=== PATIENT | female | born 1970 | race Caucasian/White ===

== ENCOUNTER 2017-04-25 14:31 | Emergency (ER) | payer BC ==
[~2017-04-25] VITALS: Ht 157.5 cm; Wt 95.5 kg
[2017-04-25 14:32] VITALS: TEMP 36.4; Ht 157.5 cm; Wt 95.5 kg
[2017-04-25] MEDS ORDERED: ONDANSETRON INJ 2 MG/ML 2 ML VIAL IV STA (14:39)
[2017-04-25] MEDS ORDERED: SODIUM CHLORIDE 0.9% 1000ML 1,000 ML IV STA (14:39)
[2017-04-25] MEDS ORDERED: MoRPHine SULFATE 4 MG/ML 1 ML CARP\\VIAL IV PRN (14:45)
--- NOTE | 2017-04-25 14:45 | EMERGENCY ROOM VISIT NOTE ---
History Report prepared by Dwaine: Scott Montanez Under the Supervision of: Dr. Shady Raya D.O. First contact with patient: 14:35 Chief Complaint: FLANK PAIN Stated Complaint: PAIN IN RIGHT SIDE History of Present Illness The patient is a 46 year old female who presents to the Emergency Room with complaints of constant right sided flank pain that began yesterday 1 day prior to arrival. The patient states that her flank pain is intermittently radiating into her right lower abdominal quadrant as well. She is becoming nauseous secondary to her pain. She denies any urinary irregularities/blood in the urine. The patient has had a hysterectomy in the past due to endometriosis. Source of History: patient Onset: 1 day [employer] Position: back (Right Flank) Timing: constant Associated Symptoms: + abdominal pain, + nausea Review of Systems See HPI for pertinent positives & negatives. A total of 10 systems reviewed and were otherwise negative. Past Medical & Surgical Medical Problems: (1) Endometriosis Surgical Problems: (1) H/O: hysterectomy Family History Kidney disease Kidney stones Social History Smoking Status: Current Every Day Smoker Drug Use: none Marital Status: Housing Status: lives with significant other Occupation Status: employed Current/Historical Medications Scheduled PRN Hydrocodone/Acetaminophen 5MG/325MG ([place] 5MG/325MG), 1 TABLET PO Q4 PRN for Pain Physical Exam Vital Signs Date Time Temp Pulse Resp B/P Pulse Ox O2 Delivery O2 Flow Rate FiO2 04/25/17 16:32 78 18 123/77 98 04/25/17 15:41 70 18 105/68 96 Room Air 04/25/17 14:48 81 04/25/17 14:32 36.4 82 20 154/103 96 Room Air Physical Exam GENERAL: Patient is awake, alert, and in no acute distress. Patient is resting comfortably and showing no signs of anxiety EYES: The conjunctivae are clear. The pupils are round and reactive. EARS, NOSE, MOUTH AND THROAT: The nose is without any evidence of any deformity. Mucous membranes are moist tongue is midline NECK: The neck is nontender and supple. RESPIRATORY: Normal respiratory effort is noted there is no evidence of wheezing rhonchi or rales CARDIOVASCULAR: Regular rate and rhythm noted there no murmurs rubs or gallops normal S1 normal S2 GASTROINTESTINAL: The abdomen mildly distended but is soft. Bowel sounds are present in all quadrants. There is tenderness to palpation in the RUQ. no guarding or rigidity. PELVIS: The Pelvis is stable. No tenderness to palpation is noted. BACK: No midline tenderness or or step-off noted range of motion in flexion extension as well as rotation no signs of muscle spasm noted. There is mild right CVA tenderness to percussion. No midline tenderness noted. ROM intact. MUSCULOSKELETAL/EXTREMITIES: There is no evidence of gross deformity full range of motion is noted in the hips and shoulders SKIN: There is no obvious evidence of any rash. There are no petechiae, pallor or cyanosis noted. NEUROLOGIC: Patient is awake alert and oriented x3 strength is symmetric patellar reflexes are 2+ bilaterally Medical Decision & Procedures ER Provider Diagnostic Interpretation: Radiology results as stated below per my review and radiologist interpretation: CHEST ONE VIEW PORTABLE CLINICAL HISTORY: Abdominal pain. COMPARISON STUDY: No previous studies for comparison. FINDINGS: Lung volumes are normal. There is no consolidation. Pulmonary vascularity is normal. Cardiac size is normal. Mediastinal contours are normal. There is no evidence of pulmonary edema. IMPRESSION: No acute cardiopulmonary findings. Electronically signed by: Evelio Moore M.D. 04/25/2017 2:54 PM Dictated Date/Time: 04/25/2017 2:53 PM ABDOMEN AND PELVIS CT WITHOUT CONTRAST CT DOSE: 961.07 mGy.cm HISTORY: right flank pain TECHNIQUE: Multiaxial CT images of the abdomen and pelvis were performed without contrast. COMPARISON STUDY: None. FINDINGS: The lung bases are clear. Hepatic steatosis. The unenhanced spleen, adrenal glands, pancreas, and gallbladder are unremarkable. No renal or ureteral stones. No hydronephrosis. No retroperitoneal lymphadenopathy. The bladder is not well-distended but appears unremarkable. Hysterectomy. Suboptimal evaluation for bowel pathology due to the lack of intravenous and oral contrast. However, there is no definite bowel wall thickening or obstruction. The appendix is not identified and may be surgically absent. IMPRESSION: 1. No renal stones or hydronephrosis. 2. No definite bowel wall thickening or obstruction. 3. Hysterectomy. 4. Hepatic steatosis. Electronically signed by: Urbano England M.D. 04/25/2017 3:29 PM Dictated Date/Time: 04/25/2017 3:23 PM Laboratory Results 04/25/17 15:05 Red Blood Count 5.21, Mean Corpuscular Volume 90.0, Mean Corpuscular Hemoglobin 31.3, Mean Corpuscular Hemoglobin Concent 34.8, Mean Platelet Volume 12.4, Neutrophils (%) (Auto) 66.5, Lymphocytes (%) (Auto) 21.8, Monocytes (%) (Auto) 7.5, Eosinophils (%) (Auto) 3.0, Basophils (%) (Auto) 0.6, Neutrophils # (Auto) 6.88, Lymphocytes # (Auto) 2.25, Monocytes # (Auto) 0.77, Eosinophils # (Auto) 0.31, Basophils # (Auto) 0.06 04/25/17 15:05 Test 04/25/17 15:05 White Blood Count 10.33 K/uL (4.8-10.8) Red Blood Count 5.21 M/uL (4.2-5.4) Hemoglobin 16.3 g/dL (12.0-16.0) Hematocrit 46.9 % (37-47) Mean Corpuscular Volume 90.0 fL (80-100) Mean Corpuscular Hemoglobin 31.3 pg (25-34) Mean Corpuscular Hemoglobin Concent 34.8 g/dl (32-36) Platelet Count 225 K/uL (130-400) Mean Platelet Volume 12.4 fL (7.4-10.4) Neutrophils (%) (Auto) 66.5 % Lymphocytes (%) (Auto) 21.8 % Monocytes (%) (Auto) 7.5 % Eosinophils (%) (Auto) 3.0 % Basophils (%) (Auto) 0.6 % Neutrophils # (Auto) 6.88 K/uL (1.4-6.5) Lymphocytes # (Auto) 2.25 K/uL (1.2-3.4) Monocytes # (Auto) 0.77 K/uL (0.11-0.59) Eosinophils # (Auto) 0.31 K/uL (0-0.5) Basophils # (Auto) 0.06 K/uL (0-0.2) RDW Standard Deviation 43.5 fL (36.4-46.3) RDW Coefficient of Variation 13.3 % (11.5-14.5) Immature Granulocyte % (Auto) 0.6 % Immature Granulocyte # (Auto) 0.06 K/uL (0.00-0.02) Urine Color YELLOW Urine Appearance CLEAR (CLEAR) Urine pH 6.0 (4.5-7.5) Urine Specific [place] 1.016 (1.000-1.030) Urine Protein NEG (NEG) Urine Glucose (UA) NEG (NEG) Urine Ketones NEG (NEG) Urine Occult Blood NEG (NEG) Urine Nitrite NEG (NEG) Urine Bilirubin NEG (NEG) Urine Urobilinogen NEG (NEG) Urine Leukocyte Esterase NEG (NEG) Anion Gap 7.0 mmol/L (3-11) Est Creatinine Clear Calc Drug Dose 104.1 ml/min Estimated GFR () 115.6 Estimated GFR (Non- 99.7 BUN/Creatinine Ratio 19.3 (10-20) Calcium Level 8.6 mg/dl (8.5-10.1) Total Bilirubin 0.5 mg/dl (0.2-1) Direct Bilirubin < 0.1 mg/dl (0-0.2) Aspartate Amino Transf (AST/SGOT) 15 U/L (15-37) Alanine Aminotransferase (ALT/SGPT) 37 U/L (12-78) Alkaline Phosphatase 93 U/L (45-117) Total Protein 7.1 gm/dl (6.4-8.2) Albumin 4.0 gm/dl (3.4-5.0) Lipase 164 U/L (73-393) Laboratory results per my review. Medications Administered Medications (Trade) Dose Ordered Sig/Feliciano Route Start Time Stop Time Status Last Admin Dose Admin Sodium Chloride (Nss 1000ml) 1,000 ml @ 999 mls/hr Q1H1M STAT IV 04/25/17 14:39 04/25/17 15:39 DC 04/25/17 14:59 999 MLS/HR Ondansetron HCl (Zofran Inj) 4 mg NOW STAT IV 04/25/17 14:39 04/25/17 14:41 DC 04/25/17 14:58 4 MG Morphine Sulfate (MoRPHine SULFATE INJ) 4 mg Q15M PRN IV 04/25/17 14:45 04/25/17 16:37 DC 04/25/17 14:59 4 MG ED Course 1438: The patient was evaluated in room A11B. A complete history and physical examination were performed. 1439: Ordered Zofran 4 mg IV, Sodium Chloride 1000 mL @ 999 mL/hr IV. 1445: Ordered Morphine Sulfate 4 mg IV. 1556: Upon reevaluation, the patient is resting in bed. I discussed the results and treatment plan with her. She verbalized agreement of the treatment plan. The patient was discharged home. Medical Decision Blood pressure screening: Patient was found to have normal blood pressure on screening and does not require follow-up. Differential diagnosis: Etiologies such as renal colic, appendicitis, diverticulitis, mesenteric ischemia, aortic pathology, infections, inflammatory bowel disease, PUD, biliary pathology, UTI, as well as others were entertained. The patient is a 46-year-old female who presented to the emergency department for an evaluation of right flank pain. The patient appeared to have significant right flank pain but no midline tenderness was noted. The patient had some right upper quadrant abdominal tenderness to palpation but no guarding or rigidity. The patient was treated with IV fluids IV pain medicine and IV antiemetics. On subsequent reevaluation she was feeling much better. I discussed the patient's laboratory and radiographic studies with her. On my initial evaluation I felt her condition could be consistent with renal colic or possibly a kidney stone. I also thought it could be secondary to gallbladder pathology. The patient's radial graphic studies did not show any abnormality with the right kidney or the gallbladder. The patient was feeling much better on subsequent reevaluation. I encouraged her to rest and avoid any strenuous activity. She was encouraged to continue all medications as prescribed. Impression Primary Impression: Low back pain Scribe Attestation The scribe's documentation has been prepared under my direction and personally reviewed by me in its entirety. I confirm that the note above accurately reflects all work, treatment, procedures, and medical decision making performed by me. Departure Information Dispostion Home / Self-Care Prescriptions Hydrocodone/Acetaminophen 5MG/325MG ([place] 5MG/325MG) Tab 1 TABLET PO Q4 Y for Pain, #25 TAB Prov: Shady Raya, 04/25/17 Referrals No Doctor, Assigned (PCP) Forms HOME CARE DOCUMENTATION FORM, IMPORTANT VISIT INFORMATION Patient Instructions My [facility] Additional Instructions Call your family to schedule a follow-up appointment. Rest and avoid any strenuous activity. Continue using Tylenol and Aleve for mild pain. Return to the emergency department if symptoms change worsen or the need arises. Problem Qualifiers Primary Impression: Low back pain Chronicity: acute Back pain laterality: right Sciatica presence: without sciatica Qualified Codes: M54.5 - Low back pain
--- NOTE | 2017-04-25 14:56 | DIAGNOSTIC IMAGING REPORT ---
CHEST ONE VIEW PORTABLE CLINICAL HISTORY: Abdominal pain. COMPARISON STUDY: No previous studies for comparison. FINDINGS: Lung volumes are normal. There is no consolidation. Pulmonary vascularity is normal. Cardiac size is normal. Mediastinal contours are normal. There is no evidence of pulmonary edema. IMPRESSION: No acute cardiopulmonary findings. Electronically signed by: Evelio Moore M.D. 04/25/2017 2:54 PM Dictated Date/Time: 04/25/2017 2:53 PM
[2017-04-25 15:10] LABS: URINE APPEARANCE CLEAR (CLEAR); URINE BILIRUBIN NEG (NEG); URINE COLOR YELLOW; URINE NITRITE NEG (NEG); URINE SPECIFIC GRAVITY 1.016 (1.000-1.030); UROBILINOGEN NEG (NEG)
[2017-04-25 15:11] LABS: BASO % 0.6 %; BASO ABS # 0.06 K/uL (0-0.2); COMPLETE YES; HEMATOCRIT 46.9 % (37-47); IG% 0.6 %; LYMPH % 21.8 %; LYMPH ABS # 2.25 K/uL (1.2-3.4); MEAN CORPUSCULAR HEMOGLOBIN 31.3 pg (25-34); MEAN CORPUSCULAR HGB CONC 34.8 g/dl (32-36); MEAN PLATELET VOLUME 12.4 fL (7.4-10.4); MONO % 7.5 %; NEUT % 66.5 %; PLATELET COUNT 225 K/uL (130-400); RED BLOOD COUNT 5.21 M/uL (4.2-5.4); WHITE BLOOD COUNT 10.33 K/uL (4.8-10.8)
[2017-04-25 15:24] LABS: MANUAL MICROSCOPIC REQUIRED? NO; REVIEW REQ? NO
[2017-04-25 15:28] LABS: ALT/SGPT 37 U/L (12-78); AST/SGOT 15 U/L (15-37); BLOOD UREA NITROGEN 14 mg/dl (7-18); BUN/CREATININE RATIO 19.3 (10-20); CALCIUM 8.6 mg/dl (8.5-10.1); CARBON DIOXIDE 26 mmol/L (21-32); CHLORIDE 110 mmol/L (98-107); CREATININE 0.72 mg/dl (0.60-1.20); GLUCOSE 84 mg/dl (70-99); POTASSIUM 4.1 mmol/L (3.5-5.1); SODIUM 143 mmol/L (136-145)
--- NOTE | 2017-04-25 15:30 | DIAGNOSTIC IMAGING REPORT ---
ABDOMEN AND PELVIS CT WITHOUT CONTRAST CT DOSE: 961.07 mGy.cm HISTORY: right flank pain TECHNIQUE: Multiaxial CT images of the abdomen and pelvis were performed without contrast. COMPARISON STUDY: None. FINDINGS: The lung bases are clear. Hepatic steatosis. The unenhanced spleen, adrenal glands, pancreas, and gallbladder are unremarkable. No renal or ureteral stones. No hydronephrosis. No retroperitoneal lymphadenopathy. The bladder is not well-distended but appears unremarkable. Hysterectomy. Suboptimal evaluation for bowel pathology due to the lack of intravenous and oral contrast. However, there is no definite bowel wall thickening or obstruction. The appendix is not identified and may be surgically absent. IMPRESSION: 1. No renal stones or hydronephrosis. 2. No definite bowel wall thickening or obstruction. 3. Hysterectomy. 4. Hepatic steatosis. Electronically signed by: Urbano England M.D. 04/25/2017 3:29 PM Dictated Date/Time: 04/25/2017 3:23 PM
[2017-04-25 15:31] LABS: ALKALINE PHOSPHATASE 93 U/L (45-117)
[2017-04-25] MEDS ORDERED: HYDR-5688 PO (16:01)
[2017-04-25 16:32] VITALS: BP 123/77; PULSE 78; O2SAT 98
== END 2017-04-25 16:33 | disposition home or self-care (01) ==
LOC: C.EDB 14:33 → C.EDA 16:33
DX: M54.5 Low back pain (principal); N80.9 Endometriosis, unspecified; Z84.1 Family history of disorders of kidney and ureter; F17.210 Nicotine dependence, cigarettes, uncomplicated

== ENCOUNTER 2017-04-27 18:12 | Emergency (ER) | payer BC ==
[~2017-04-27] VITALS: Ht 157.5 cm; Wt 93.3 kg
[~2017-04-27 18:12] MED LIST: HYDR-5688 PO
[2017-04-27 18:15] VITALS: Ht 157.5 cm; Wt 93.3 kg
[2017-04-27] MEDS ORDERED: SODIUM CHLORIDE 0.9% 1000ML 1,000 ML IV STA (18:35)
[2017-04-27] MEDS ORDERED: ONDANSETRON INJ 2 MG/ML 2 ML VIAL IV STA (18:35)
[2017-04-27] MEDS ORDERED: HYDROmorphone INJ 1 MG/ML SYR IV STA (18:36)
--- NOTE | 2017-04-27 18:49 | DIAGNOSTIC IMAGING REPORT ---
SINGLE VIEW CHEST CLINICAL HISTORY: Atypical chest pain. Right upper quadrant abdominal pain. FINDINGS: An AP, portable, upright chest radiograph is compared to study dated 04/25/2017. The examination is degraded by portable technique, large body habitus, and patient rotation. The cardiomediastinal silhouette is unremarkable. The lungs and pleural spaces are clear. No pneumothorax is seen. The bony thorax is grossly intact. IMPRESSION: No active disease in the chest and no significant change from 04/25/2017. Electronically signed by: Fabian Tran M.D. 04/27/2017 6:48 PM Dictated Date/Time: 04/27/2017 6:47 PM
--- NOTE | 2017-04-27 18:55 | EMERGENCY ROOM VISIT NOTE ---
History First contact with patient: 18:19 Chief Complaint: ABDOMINAL PAIN Stated Complaint: PAIN IN RIGHT SIDE AND BACK Nursing Triage Summary: Pt reports right sided abd pain that goes across abd and into back. associated n/v. reports was seen here the other day and told it was gallbladder History of Present Illness The patient is a 46 year old female who presents to the Emergency Room with complaints of right-sided abdominal/back pain. The patient states that she woke up a few days ago with right back pain radiating into the abdomen. She was seen here 2 days ago and told that her gallbladder was enlarged. She states that she has had persistent right-sided back pain which she rates a 10/ 10. She states the pain radiates across her upper abdomen and into the center of her chest. She reports associated nausea and one episode of vomiting. She states she has not had a bowel movement for 3 days, which is unusual for her. She denies any history of abdominal surgeries. She denies any cardiac history. She denies any shortness of breath, urinary symptoms or abnormal vaginal discharge. Review of Systems A complete 10 point review of systems was reviewed with the patient with pertinent positives and negatives as per history of present illness. All else were negative. Past Medical/Surgical History Medical Problems: (1) Endometriosis Surgical Problems: (1) H/O: hysterectomy Family History Kidney disease Kidney stones Social History Smoking Status: Current Every Day Smoker Drug Use: none Marital Status: Housing Status: lives with significant other Occupation Status: employed Current/Historical Medications Scheduled PRN Hydrocodone/Acetaminophen 5MG/325MG ([place] 5MG/325MG), 1 TABLET PO Q4 PRN for Pain Hydrocodone/Acetaminophen 5MG/325MG ([place] 5MG/325MG), 1-2 TABLET PO Q4H PRN for Pain Allergies Coded Allergies: No Known Allergies (Unverified , 04/27/17) Physical Exam Vital Signs Date Time Temp Pulse Resp B/P Pulse Ox O2 Delivery O2 Flow Rate FiO2 04/27/17 21:42 36.8 65 18 135/87 96 04/27/17 20:52 65 18 135/87 96 Room Air 04/27/17 18:15 36.8 87 18 144/93 96 Room Air Physical Exam VITALS: Vitals are noted on the nurse's note and reviewed by myself. Vital signs stable. GENERAL: This is a 46-year-old female, in no acute distress, nondiaphoretic, well-developed well-nourished. SKIN: Capillary reflex less than 2 seconds. HEENT: Normocephalic. PERRLA. EOMI. Nares patent. Mucous membranes moist. Neck is supple without nuchal rigidity. HEART: Regular rate and rhythm without murmurs gallops or rubs. LUNGS: Clear to auscultation bilaterally without wheezes, rales or rhonchi. ABDOMEN: Positive bowel sounds x 4. Soft, moderate tenderness to palpation of the right upper quadrant. No guarding or rebound tenderness. No CVA tenderness. MUSCULOSKELETAL: No tenderness to palpation of the lumbar or thoracic spinous processes or paraspinous muscles. NEURO: Patient was alert and oriented to person place and time. Medical Decision & Procedures ER Provider Diagnostic Interpretation: SINGLE VIEW CHEST FINDINGS: An AP, portable, upright chest radiograph is compared to study dated 04/25/2017. The examination is degraded by portable technique, large body habitus, and patient rotation. The cardiomediastinal silhouette is unremarkable. The lungs and pleural spaces are clear. No pneumothorax is seen. The bony thorax is grossly intact. IMPRESSION: No active disease in the chest and no significant change from 04/25/2017. ULTRASOUND RIGHT UPPER QUADRANT ABDOMEN FINDINGS: Liver: The liver is enlarged and demonstrates heterogeneously increased echotexture consistent with hepatic steatosis. Fatty sparing is noted adjacent to gallbladder fossa. There is no intrahepatic biliary ductal dilatation. The main portal vein is patent. Gallbladder: The gallbladder is normal in appearance. No gallstones are identified. There is no gallbladder wall thickening or pericholecystic fluid. A sonographic Swift's sign is reportedly absent. The common bile duct measures up to 0.5 cm in diameter. Pancreas: Visualized portions of the pancreatic head and body are normal in appearance. The splenic vein is patent. Right kidney: Survey images of the right kidney demonstrate normal size and echotexture. There is no hydronephrosis. Ascites: None. IMPRESSION: 1. No acute sonographic abnormality is identified in the right upper quadrant. No gallstones are seen. 2. Hepatomegaly and hepatic steatosis. Laboratory Results 04/27/17 18:35 Red Blood Count 5.21, Mean Corpuscular Volume 89.6, Mean Corpuscular Hemoglobin 29.6, Mean Corpuscular Hemoglobin Concent 33.0, Mean Platelet Volume 12.7, Neutrophils (%) (Auto) 65.5, Lymphocytes (%) (Auto) 25.1, Monocytes (%) (Auto) 6.1, Eosinophils (%) (Auto) 2.3, Basophils (%) (Auto) 0.6, Neutrophils # (Auto) 6.59, Lymphocytes # (Auto) 2.52, Monocytes # (Auto) 0.61, Eosinophils # (Auto) 0.23, Basophils # (Auto) 0.06 04/27/17 18:35 Test 04/27/17 18:35 04/27/17 18:50 White Blood Count 10.05 K/uL (4.8-10.8) Red Blood Count 5.21 M/uL (4.2-5.4) Hemoglobin 15.4 g/dL (12.0-16.0) Hematocrit 46.7 % (37-47) Mean Corpuscular Volume 89.6 fL (80-100) Mean Corpuscular Hemoglobin 29.6 pg (25-34) Mean Corpuscular Hemoglobin Concent 33.0 g/dl (32-36) Platelet Count 250 K/uL (130-400) Mean Platelet Volume 12.7 fL (7.4-10.4) Neutrophils (%) (Auto) 65.5 % Lymphocytes (%) (Auto) 25.1 % Monocytes (%) (Auto) 6.1 % Eosinophils (%) (Auto) 2.3 % Basophils (%) (Auto) 0.6 % Neutrophils # (Auto) 6.59 K/uL (1.4-6.5) Lymphocytes # (Auto) 2.52 K/uL (1.2-3.4) Monocytes # (Auto) 0.61 K/uL (0.11-0.59) Eosinophils # (Auto) 0.23 K/uL (0-0.5) Basophils # (Auto) 0.06 K/uL (0-0.2) RDW Standard Deviation 43.6 fL (36.4-46.3) RDW Coefficient of Variation 13.3 % (11.5-14.5) Immature Granulocyte % (Auto) 0.4 % Immature Granulocyte # (Auto) 0.04 K/uL (0.00-0.02) Anion Gap 7.0 mmol/L (3-11) Est Creatinine Clear Calc Drug Dose 90.2 ml/min Estimated GFR () 98.8 Estimated GFR (Non- 85.2 BUN/Creatinine Ratio 16.6 (10-20) Calcium Level 8.9 mg/dl (8.5-10.1) Total Bilirubin 0.5 mg/dl (0.2-1) Aspartate Amino Transf (AST/SGOT) 15 U/L (15-37) Alanine Aminotransferase (ALT/SGPT) 33 U/L (12-78) Alkaline Phosphatase 97 U/L (45-117) Troponin I < 0.015 ng/ml (0-0.045) Total Protein 7.6 gm/dl (6.4-8.2) Albumin 4.0 gm/dl (3.4-5.0) Globulin 3.6 gm/dl (2.5-4.0) Albumin/Globulin Ratio 1.1 (0.9-2) Lipase 135 U/L (73-393) Urine Color YELLOW Urine Appearance CLEAR (CLEAR) Urine pH 6.5 (4.5-7.5) Urine Specific [place] 1.008 (1.000-1.030) Urine Protein NEG (NEG) Urine Glucose (UA) NEG (NEG) Urine Ketones NEG (NEG) Urine Occult Blood NEG (NEG) Urine Nitrite NEG (NEG) Urine Bilirubin NEG (NEG) Urine Urobilinogen NEG (NEG) Urine Leukocyte Esterase NEG (NEG) Urine Test NEG (NEG) Medications Administered Medications (Trade) Dose Ordered Sig/Feliciano Route Start Time Stop Time Status Last Admin Dose Admin Sodium Chloride (Nss 1000ml) 1,000 ml @ 999 mls/hr Q1H1M STAT IV 04/27/17 18:35 04/27/17 19:35 DC 04/27/17 18:45 999 MLS/HR Ondansetron HCl (Zofran Inj) 4 mg NOW STAT IV 04/27/17 18:35 04/27/17 18:36 DC 04/27/17 18:44 4 MG Hydromorphone HCl (Dilaudid Inj) 1 mg NOW STAT IV 04/27/17 18:36 04/27/17 18:37 DC 04/27/17 18:44 1 MG Acetaminophen/ Hydrocodone Bitart ([place] 5/325mg Home Pack) 1 homepack UD ONCE PO 04/27/17 21:30 04/27/17 21:31 DC 04/27/17 21:41 1 HOMEPACK ECG Rate (beats per minute): 71 Rhythm: normal sinus Findings: no acute ischemic change, no ectopy ED Course The patient was evaluated as above. Labs were drawn and IV access was obtained. Patient was medicated with 1 mg Dilaudid IV and 4 mg Zofran IV. Ultrasound of the right upper quadrant was performed and read by radiology as above. Patient was reevaluated and findings were discussed. She will be discharged home to follow-up with her primary care provider. She was ordered a home pack of [place]. Discharge instructions were reviewed with the patient. The patient verbalized understanding of my assessment and treatment plan and was discharged home in good condition. Medical Decision Differential diagnosis includes biliary colic, renal colic, musculoskeletal pain , colitis, gastritis, among others. The patient is a 46-year-old female who presents today complaining of right upper quadrant pain and right-sided back pain. Labs revealed no leukocytosis, anemia or concerning electrolyte abnormalities. Kidney and liver functions are within normal limits. Urinalysis was not suggestive of infection. Urine was negative. EKG was interpreted by myself and shows a normal sinus rhythm with no evidence of ischemia troponin was not elevated. Previous records were reviewed. The patient was seen here 2 days ago and had a CT scan at that time which was unremarkable. A right upper quadrant ultrasound today showed no evidence of biliary disease. I am unsure of the cause of the patient' s pain, but suspect it is likely musculoskeletal. The patient will be given a short course of [place] and will follow-up with her primary care provider for further evaluation. The patient's case was reviewed with Dr. Fernando, ED attending physician, who agreed with my assessment and treatment plan. Based on the patient's presentation and work up, I feel the patient is stable for outpatient treatment. The patient was educated to return to the emergency department for any worsening of their current condition or new/concerning symptoms. She will follow up with her PCP or return here sooner for worsening symptoms. Impression Primary Impression: Right-sided back pain Departure Information Dispostion Home / Self-Care Condition GOOD Prescriptions Hydrocodone/Acetaminophen 5MG/325MG ([place] 5MG/325MG) Tab 1-2 TABLET PO Q4H Y for Pain, #15 TAB For Initial Treatment Prov: Adina Renteria PA-C 04/27/17 Referrals No Doctor, Assigned (PCP) Patient Instructions My [facility] Additional Instructions You have been treated in the Emergency Department your Abdominal Pain. Laboratory results and imaging studies have ruled out any emergent causes for your abdominal pain which would warrant admission or surgery. You have been prescribed [place] to be used for pain control. This is a narcotic medication. You cannot drive or consume alcohol while on this medicine. This medicine should only be used for pain that cannot be controlled with over-the- counter pain medicines. For pain control, you can use the following [id number]-yftqayr medicines (if >12 yo): - Regular strength (325mg/tab) Tylenol (acetaminophen) 2 tabs every 4-6 hours as needed. Do not exceed 12 tablets in a 24 hour period. Avoid taking more than 4 grams (4000 mg) of Tylenol per day. This includes any other sources of acetaminophen you may take on a regular basis. - Regular strength (200 mg/tab) Advil (ibuprofen) 1-2 tabs every 4-6 hours as needed. Do not exceed a dose of 3200 mg per day. Drink plenty of water and stay well hydrated. As with any trip to the Emergency Department, you should follow-up with your Primary Care Provider from today's visit. Return to the emergency department with any worsening symptoms or new/ concerning symptoms. Problem Qualifiers Primary Impression: Right-sided back pain
[2017-04-27 19:12] LABS: ALT/SGPT 33 U/L (12-78); AST/SGOT 15 U/L (15-37); BLOOD UREA NITROGEN 14 mg/dl (7-18); BUN/CREATININE RATIO 16.6 (10-20); CALCIUM 8.9 mg/dl (8.5-10.1); CARBON DIOXIDE 27 mmol/L (21-32); CHLORIDE 109 mmol/L (98-107); CREATININE 0.82 mg/dl (0.60-1.20); GLUCOSE 95 mg/dl (70-99); POTASSIUM 3.7 mmol/L (3.5-5.1); SODIUM 143 mmol/L (136-145)
[2017-04-27 19:17] LABS: ALB/GLOB RATIO 1.1 (0.9-2); ALKALINE PHOSPHATASE 97 U/L (45-117)
[2017-04-27 19:19] LABS: URINE APPEARANCE CLEAR (CLEAR); URINE BILIRUBIN NEG (NEG); URINE COLOR YELLOW; URINE NITRITE NEG (NEG); URINE PH 6.5 (4.5-7.5); URINE SPECIFIC GRAVITY 1.008 (1.000-1.030); UROBILINOGEN NEG (NEG); ZZUR CULT IF INDIC CLEAN CATCH NO
[2017-04-27 19:23] LABS: MANUAL MICROSCOPIC REQUIRED? NO; REVIEW REQ? NO
--- NOTE | 2017-04-27 19:55 | DIAGNOSTIC IMAGING REPORT ---
ULTRASOUND RIGHT UPPER QUADRANT ABDOMEN CLINICAL HISTORY: Vomiting. Right upper quadrant abdominal pain. COMPARISON STUDY: Abdominal CT dated 04/25/2017. TECHNIQUE: Real-time, grayscale, and color flow sonography of the right upper quadrant of the abdomen was performed. Images are reviewed in the transverse and longitudinal planes. FINDINGS: Liver: The liver is enlarged and demonstrates heterogeneously increased echotexture consistent with hepatic steatosis. Fatty sparing is noted adjacent to gallbladder fossa. There is no intrahepatic biliary ductal dilatation. The main portal vein is patent. Gallbladder: The gallbladder is normal in appearance. No gallstones are identified. There is no gallbladder wall thickening or pericholecystic fluid. A sonographic Swift's sign is reportedly absent. The common bile duct measures up to 0.5 cm in diameter. Pancreas: Visualized portions of the pancreatic head and body are normal in appearance. The splenic vein is patent. Right kidney: Survey images of the right kidney demonstrate normal size and echotexture. There is no hydronephrosis. Ascites: None. IMPRESSION: 1. No acute sonographic abnormality is identified in the right upper quadrant. No gallstones are seen. 2. Hepatomegaly and hepatic steatosis. Electronically signed by: Fabian Tran M.D. 04/27/2017 7:53 PM Dictated Date/Time: 04/27/2017 7:52 PM
[2017-04-27 20:30] LABS: BASO % 0.6 %; BASO ABS # 0.06 K/uL (0-0.2); COMPLETE YES; EOS % 2.3 %; HEMATOCRIT 46.7 % (37-47); IG% 0.4 %; LYMPH % 25.1 %; LYMPH ABS # 2.52 K/uL (1.2-3.4); MEAN CELL VOLUME 89.6 fL (80-100); MEAN CORPUSCULAR HEMOGLOBIN 29.6 pg (25-34); MEAN PLATELET VOLUME 12.7 fL (7.4-10.4); MONO % 6.1 %; NEUT % 65.5 %; PLATELET COUNT 250 K/uL (130-400); RED BLOOD COUNT 5.21 M/uL (4.2-5.4); WHITE BLOOD COUNT 10.05 K/uL (4.8-10.8)
[2017-04-27] MEDS ORDERED: HYDR-5688 PO (21:25)
[2017-04-27] MEDS ORDERED: NORCO 5/325MG HOME PACK PO ONE (21:30)
[2017-04-27 21:42] VITALS: BP 135/87; PULSE 65; TEMP 36.8; O2SAT 96
== END 2017-04-27 21:43 | disposition home or self-care (01) ==
LOC: C.EDB 18:13 → C.EDA 21:43
DX: M54.9 Dorsalgia, unspecified (principal); R10.11 Right upper quadrant pain; N80.9 Endometriosis, unspecified; Z84.1 Family history of disorders of kidney and ureter; F17.210 Nicotine dependence, cigarettes, uncomplicated

== ENCOUNTER 2022-11-01 21:38 | Inpatient (IN) ==
[2022-11-01 22:05] LABS: Basophils # (auto) 0.09 K/uL (0-0.2); Basophils % (auto) 0.6 %; Eosinophils # (auto) 0.13 K/uL (0-0.50); Eosinophils % (auto) 0.8 %; Hemoglobin 15.8 g/dl (12.0-16.0); Immature Granulocytes # (auto) 0.14 K/uL (0.00-0.02); Immature Granulocytes % (auto) 0.9 %; Lymphocytes # (auto) 3.92 K/uL (1.2-3.4); Lymphocytes % (auto) 24.6 %; Mean Corpuscular Hgb Conc 33.6 g/dL (32.0-36.0); Mean Corpuscular Volume 92.2 fL (80.0-100.0); Mean Platelet Volume 11.6 fL (9.4-12.3); Monocytes # (auto) 1.04 K/uL (0.24-0.82); Monocytes % (auto) 6.5 %; Neutrophils # (auto) 10.61 K/uL (1.4-6.5); Neutrophils % (auto) 66.6 %; Platelet Count 252 K/uL (130-400); RDW Coefficient of Variation 13.9 % (11.5-14.5); RDW Standard Deviation 46.9 fL (36.4-46.3); White Blood Count 15.93 K/ul (4.8-10.8)
[2022-11-01 22:28] LABS: Albumin Globulin Ratio 1.6 (0.9-2); Albumin Level 4.2 gm/dl (3.4-5.0); BUN Creatinine Ratio 12.6 (10-20); Bilirubin,Total 0.2 mg/dl (0.2-1.0); Calcium 8.8 mg/dl (8.5-10.1); Creatinine Clr Calc Pharmacy 60.9 ml/min; Est GFR (African American) 60.4 ml/min; Est GFR (Non-African American) 52.1 ml/min; Globulin 2.6 gm/dl (2.5-4.0); Total Protein 6.8 gm/dl (6.0-8.3)
[2022-11-01 22:33] LABS: INR 0.9 (0.9-1.1); Partial Thromboplastin Ratio 0.9; Partial Thromboplastin Time 24.5 Seconds (21.0-31.0)
[2022-11-01 22:39] LABS: Troponin I High Sensitivity 118.4 pg/ml (0-14)
[2022-11-02] MEDS ORDERED: SODIUM CHLORIDE 0.9% 1000ML 1,000 ML IV ONE ×2 (00:17→02:15)
[2022-11-02] MEDS ORDERED: ASPIRIN CHEW 324 MG PO STA (01:35)
[2022-11-02] MEDS ORDERED: Heparin IV Adult Wt-Based Standard *NO* Bolus Protocol IV SCH (02:13)
[2022-11-02] MEDS ORDERED: NITROGLYCERIN SL 0.4 MG/TAB TAB SL STA (02:13)
[2022-11-02] MEDS ORDERED: HEPARIN SODIUM/DEXTROSE 25,000 UNITS/500 ML BAG IV SCH (02:30)
--- NOTE | 2022-11-02 03:40 | History & Physical Report ---
Date of Service November 02, 2022 Assessment & Plan (1) NSTEMI (non-ST elevated myocardial infarction): Plan: hyperlipidemia, currently not on statin Rx GERD stable on regimen psoriatic arthritis ongoing steroid taper for knee pain ongoing tobacco abuse PCU Aspirin, beta-lionel, statin, IV heparin Nitro as needed Follow troponin Update lipid profile TTE, Cardiology consult Re: NSTEMI N.p.o. until patient seen by cardiology in anticipation of ischemic work-up Nicotine patch as needed DVT prophylaxis. IV heparin Full code Text document was generated using [employer] voice recognition software. It may contain grammatical or spelling errors. Kindly contact undersigned for clarification of any documentation item in question. History of Present Illness Chief Complaint: Chest pain Primary Care Provider: Dorene Viera MD History obtained from patient and records. Medical history significant for hyperlipidemia, GERD, psoriatic arthritis ongoing steroid taper for knee pain, ongoing tobacco abuse. 2 weeks ago, patient noted left-sided chest pain described as heaviness going to the left arm and jaw. Some shortness of breath. Intermittent symptoms. No unusual stress at home. Chest pain similar to episode in 2019 which prompted outpatient stress echo negative for inducible ischemia. More intense discomfort in the last 3 days. Patient took aspirin last night. Consulted ER for worsening symptoms. Chest pain improved with nitroglycerin administration at the ER. Medical History as above Surgical History : Current section, fourth toe surgery, rectal surgery, ROBBI/BSO Family History : DM, heart disease Personal/Social history : Half pack daily, no EtOH intake, factory work Allergies Allergy/AdvReac Type Severity Reaction Status Date / Time oxycodone AdvReac Intermediate Severe Unverified 11/02/22 03:02 nausea acetaminophen AdvReac Nausea Verified 11/02/22 03:03 [From Darvocet-N] propoxyphene AdvReac Nausea Verified 11/02/22 03:03 [From Darvocet-N] Home Medications Medication Instructions Recorded Confirmed Type acetaminophen 325 mg tablet 650 mg PO QID PRN Pain 11/02/22 11/02/22 History (Tylenol) betamethasone dipropionate 0.05 % 1 applic topical BID 11/02/22 11/02/22 History topical ointment folic acid 1 mg tablet 1 mg PO QAM 11/02/22 11/02/22 History hydrocortisone 2.5 % topical cream 1 applic HI BID PRN Hemorrhoids 11/02/22 11/02/22 History with perineal applicator (Proctozone-HC) methotrexate sodium 2.5 mg tablet 15 mg PO .QFRI 11/02/22 11/02/22 History montelukast 10 mg tablet 10 mg PO DAILY PRN Allergy Symptoms 11/02/22 11/02/22 History omeprazole 20 mg capsule,delayed 20 mg PO DAILY PRN Acid Reflux 11/02/22 11/02/22 History release prednisone 5 mg tablet 5 mg PO .TAPER UD 11/02/22 11/02/22 History sucralfate 1 gram tablet 1 g PO ACHS PRN Acid Reflux 11/02/22 11/02/22 History Past Med/Surg History Medical History Arthritis Current every day smoker GERD (gastroesophageal reflux disease) Family History Other No significant family history Social History Smoking Status: Current every day smoker Second Hand Exposure: No; Do You Dip or Chew Tobacco: No; Tobacco Cessation Education Requested by Patient: No Hx Alcohol Use: Yes Hx Substance Use: No Preferred Language: Azerbaijani Communication Ability: Effective 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 Beliefs That Will Affect Care: None Current Living Situation: Spouse Other Information That Helps Us Care for You: No Feels Safe at Home: Yes Safety Concerns: Feels Safe At This Time Assistive Devices: Glasses Review of Systems Review of Systems: As per HPI, all other systems reviewed and negative Physical Exam Physical Exam: GENERAL: Comfortable, pleasant, obese, no respiratory distress SKIN: Normal color, warm HEENT: Bespectacled, [place] palpebral conjunctivae, no ptosis, moist buccal mucosa NECK : Supple, short neck, mo tenderness CHEST : CTA, no tenderness HEART : RRR, no obvious murmurs ABDOMEN: Some distention, nontender EXTREMITIES : No LE swelling, minimal knee tenderness, no other conspicuous def ormities noted NEUROLOGIC : Coherent, no facial asymmetry, no other gross focality Results & Data Results & Data ([facility]) Vital Signs (Past 12 Hours) Vital Signs Temp Pulse Pulse Resp BP BP Pulse Ox 11/02/22 03:00 63 16 126/84 96 11/02/22 01:00 68 18 130/93 97 11/01/22 23:40 11/01/22 23:40 74 16 131/91 95 11/01/22 21:42 36.5 C 87 20 137/92 96 O2 Del Method 11/02/22 03:00 Room Air 11/02/22 01:00 Room Air 11/01/22 23:40 Room Air 11/01/22 23:40 Room Air 11/01/22 21:42 Room Air Laboratory Results Laboratory Results WBC 15.93 K/ul (4.8-10.8) H 11/01/22 21:51 RBC 5.10 M/uL (3.93-5.22) 11/01/22 21:51 Hgb 15.8 g/dl (12.0-16.0) 11/01/22 21:51 Hct 47.0 % (34.1-44.9) H 11/01/22 21:51 MCV 92.2 fL (80.0-100.0) 11/01/22 21:51 MCH 31.0 pg (25.0-34.0) 11/01/22 21:51 MCHC 33.6 g/dL (32.0-36.0) 11/01/22 21:51 RDW Std Deviation 46.9 fL (36.4-46.3) H 11/01/22 21:51 RDW Coeff of Aydin 13.9 % (11.5-14.5) 11/01/22 21:51 Plt Count 252 K/uL (130-400) 11/01/22 21:51 MPV 11.6 fL (9.4-12.3) 11/01/22 21:51 Immature Gran % (Auto) 0.9 % 11/01/22 21:51 Neut % (Auto) 66.6 % 11/01/22 21:51 Lymph % (Auto) 24.6 % 11/01/22 21:51 [place] % (Auto) 6.5 % 11/01/22 21:51 Eos % (Auto) 0.8 % 11/01/22 21:51 Baso % (Auto) 0.6 % 11/01/22 21:51 Neut # (Auto) 10.61 K/uL (1.4-6.5) H 11/01/22 21:51 Lymph # (Auto) 3.92 K/uL (1.2-3.4) H 11/01/22 21:51 [place] # (Auto) 1.04 K/uL (0.24-0.82) H 11/01/22 21:51 Eos # (Auto) 0.13 K/uL (0-0.50) 11/01/22 21:51 Baso # (Auto) 0.09 K/uL (0-0.2) 11/01/22 21:51 Immature Gran # (Auto) 0.14 K/uL (0.00-0.02) H 11/01/22 21:51 PT 10.0 Seconds (9.0-12.0) 11/01/22 21:51 INR 0.9 (0.9-1.1) 11/01/22 21:51 APTT 24.5 Seconds (21.0-31.0) 11/01/22 21:51 PTT Ratio 0.9 11/01/22 21:51 Sodium 138 mmol/L (136-145) 11/01/22 21:51 Potassium 4.0 mmol/L (3.5-5.1) 11/01/22 21:51 Chloride 104 mmol/L (98-107) 11/01/22 21:51 Carbon Dioxide 29 mmol/L (21-32) 11/01/22 21:51 Anion Gap 5 (3-11) 11/01/22 21:51 BUN 15 mg/dl (6-23) 11/01/22 21:51 Creatinine 1.19 mg/dl (0.6-1.2) 11/01/22 21:51 Est Cr Clr Drug Dosing 60.9 ml/min 11/01/22 21:51 Est GFR ( Amer) 60.4 ml/min 11/01/22 21:51 Est GFR (Non-Af Amer) 52.1 ml/min 11/01/22 21:51 BUN/Creatinine Ratio 12.6 (10-20) 11/01/22 21:51 Glucose 106 mg/dl (70-99(Fasting)) H 11/01/22 21:51 Calcium 8.8 mg/dl (8.5-10.1) 11/01/22 21:51 Total Bilirubin 0.2 mg/dl (0.2-1.0) 11/01/22 21:51 AST 12 U/L (13-39) L 11/01/22 21:51 ALT 21 U/L (7-52) 11/01/22 21:51 Alkaline Phosphatase 93 U/L (34-104) 11/01/22 21:51 Troponin I High Sens 157.0 pg/ml (0-14) H* D 11/02/22 00:18 Total Protein 6.8 gm/dl (6.0-8.3) 11/01/22 21:51 Albumin 4.2 gm/dl (3.4-5.0) 11/01/22 21:51 Globulin 2.6 gm/dl (2.5-4.0) 11/01/22 21:51 Albumin/Globulin Ratio 1.6 (0.9-2) 11/01/22 21:51 SARS-CoV-2, RNA, NAAT NEGATIVE (NEGATIVE) 11/02/22 01:[address] chest initial read: There is excellent opacification of the pulmonaryarterial tree, no pulmonaryarterial filling defect is seen. There is mosaic attenuation of the lungswhich likelyreflects air trapping. No dense consolidation, pleural effusion, or pneumothorax. There are dense coronaryvascular calcifications EKG as per my interpretation : Rate 80, NSR, normal axis, nonspecific T wave abnormalities
--- NOTE | 2022-11-02 03:40 | Emergency Department Note ---
Impression & Plan Atypical chest pain, Elevated troponin, Current every day smoker ED Provider Note NAME: SPENSER HAN AGE: 52 SEX: F ARRIVES VIA: Walk-In INFORMANT: Patient ED PROVIDER(S): J Luis Gay MD CHIEF COMPLAINT: Chest pain PLAN: Disposition: Admit MEDICAL DECISION MAKING: The patient is a pleasant 52-year-old woman with a past medical history of ast hma, GERD, daily smoking, arthritis who presents to the emergency department accompanied by her for evaluation of left-sided chest pain that radiates to her left shoulder that has been intermittent over the past week but reports she has had a component of this over the past couple of years. She reports 2 years ago when the symptoms first began she had a negative stress test. However she reports over the past several weeks her symptoms had recurred in the setting of being treated for arthritis of her right knee where she was started on prednisone, folic acid as well as methotrexate. She correlates the onset of her symptoms with the initiation of this treatment. She denies any correlation or provocation with exertion and notes that the symptoms often occur at rest and tonight at 9 PM her most recent episode occurred prior to arrival when she was sitting on the couch. She denies increased pain with inspiration. She denies any new shortness of breath. She otherwise denies any fevers, chills, cough, congestion, GI or symptoms. She denies any personal or family history of blood clots. Of note, the patient did arrive to emergency department during time of high volume, acuity and prolonged emergency department waiting times. Critical pathways initiated from triage. On arrival the patient is in no acute distress, afebrile with stable vital signs. She denies chest pain at this time. Exam is otherwise unremarkable. EKG without overt acute ischemia. Chest x-ray negative for acute cardiopulmonary process per my preliminary review. WBC 15.9K nonspecific in the setting of recent steroid course. Hemoglobin and platelets within normal limits. Chemistry without metabolic acidosis. Electrolytes and LFTs without significant abnormality. Initial high-sensitivity troponin 118 with delta 2.5-hour high-sensitivity troponin 157, nonspecific. Per preliminary stat rad report CTA of the chest was negative for PE or PNA. Note is made of dense coronary vascular calcifications. Patient was given full dose aspirin. Patient and her agree with plan for admission for further evaluation. [facility]. Triage Nursing notes reviewed and agree them. Prior medical records reviewed Vital Signs: reviewed Differential diagnosis: Cardiac ischemia, aortic dissection, pulmonary embolism, pneumothorax, pneumonia, pericarditis, myocarditis, esophageal rupture, GERD, cholecystitis, pancreatitis, musculoskeletal, as well as other pathologies. ER treatment provided: See below. Diagnostics interpreted by me: ECG: Normal sinus rhythm, 82 bpm, no ectopy, nonspecific T wave abnormality, no overt ST elevation or depression, QTC 406, QRS 76. Cardiac Monitoring: An order for continuous cardiac monitoring was placed and demonstrated normal sinus rhythm, 82 bpm, no ectopy Laboratory studies: See below Imaging studies: See below Consultation(s): Case [facility]. HPI: The patient is a pleasant 52-year-old woman with a past medical history of asthma, GERD, daily smoking, arthritis who presents to the emergency department accompanied by her for evaluation of left-sided chest pain that radiates to her left shoulder that has been intermittent over the past week but reports she has had a component of this over the past couple of years. She reports 2 years ago when the symptoms first began she had a negative stress test. However she reports over the past several weeks her symptoms had recurred in the setting of being treated for arthritis of her right knee where she was started on prednisone, folic acid as well as methotrexate. She correlates the onset of her symptoms with the initiation of this treatment. She denies any correlation or provocation with exertion and notes that the symptoms often occur at rest and tonight at 9 PM her most recent episode occurred prior to arrival when she was sitting on the couch. She denies increased pain with inspiration. She denies any new shortness of breath. She otherwise denies any fevers, chills, cough, congestion, GI or symptoms. She denies any personal or family history of blood clots. Of note, the patient did arrive to emergency department during time of high volume, acuity and prolonged emergency department waiting times. Critical pathways initiated from triage. ROS: See above HPI for pertinent positives & negatives. A total of 10 systems reviewed and were otherwise negative. VITALS:See Below PHYSICAL EXAMINATION: GENERAL: Awake, alert, well-appearing, in no distress HENT: Normocephalic, atraumatic. Oropharynx with dry mucous membranes and other darnell unremarkable. EYES: Normal conjunctiva. Sclera non-icteric. NECK: Supple. No nuchal rigidity. FROM. No JVD. RESPIRATORY: Clear to auscultation. CARDIAC: Regular rate, normal rhythm. Extremities warm and well perfused. Pulses equal. ABDOMEN: Soft, non-distended. No tenderness to palpation. No rebound or guarding. No masses. RECTAL: Deferred. MUSCULOSKELETAL: Chest examination reveals no tenderness. The back is symmetrical on inspection without obvious abnormality. There is no CVA tenderness to palpation. No joint edema. LOWER EXTREMITIES: Calves are equal size bilaterally and non-tender. No edema. No discoloration. NEURO: Normal sensorium. No sensory or motor deficits noted. SKIN: No rash or jaundice noted. ED COURSE: Critical Care: I have personally spent greater than 35 minutes of critical care time in the direct management of this patient. This includes bedside care, interpretation of diagnostic studies, and testing, discussion with consultants, patient, and family members, and other required patient management activities. This 35 minutes is in excess of all separately billable procedures. J Luis Gay MD Past Med/Surg History Medical History Arthritis Current every day smoker GERD (gastroesophageal reflux disease) Family History Other No significant family history Social History Smoking Status: Current every day smoker Preferred Language: Turkmen Feels Safe at Home: Yes Allergies Allergies Allergy/AdvReac Type Severity Reaction Status Date / Time oxycodone AdvReac Intermediate Severe Unverified 11/02/22 03:02 nausea acetaminophen AdvReac Nausea Verified 11/02/22 03:03 [From Darvocet-N] propoxyphene AdvReac Nausea Verified 11/02/22 03:03 [From Darvocet-N] Home Meds Home Medications Medication Instructions Recorded Confirmed acetaminophen 325 mg tablet 650 mg PO QID PRN Pain 11/02/22 11/02/22 (Tylenol) betamethasone dipropionate 0.05 % 1 applic topical BID 11/02/22 11/02/22 topical ointment folic acid 1 mg tablet 1 mg PO QAM 11/02/22 11/02/22 hydrocortisone 2.5 % topical cream 1 applic [place] BID PRN Hemorrhoids 11/02/22 11/02/22 with perineal applicator (Proctozone-HC) methotrexate sodium 2.5 mg tablet 15 mg PO .QFRI 11/02/22 11/02/22 montelukast 10 mg tablet 10 mg PO DAILY PRN Allergy Symptoms 11/02/22 11/02/22 omeprazole 20 mg capsule,delayed 20 mg PO DAILY PRN Acid Reflux 11/02/22 11/02/22 release prednisone 5 mg tablet 5 mg PO .TAPER UD 11/02/22 11/02/22 sucralfate 1 gram tablet 1 g PO ACHS PRN Acid Reflux 11/02/22 11/02/22 Results & Data (ED) Vital Signs Vital Signs - 24 hr 11/01/22 21:42 11/01/22 23:40 11/01/22 23:40 Temperature 36.5 C Temperature Source Temporal Artery Scan Pulse Rate 87 Pulse Rate [Apical] 74 Pulse Rhythm [Apical] Regular Respiratory Rate 20 16 Respiratory Effort / Characteristics Non-Labored Spontaneous Respiratory Depth Normal Blood Pressure 137/92 Blood Pressure [Right Arm] 131/91 Blood Pressure Mean 107 Blood Pressure Mean [Right Arm] 104 Pulse Oximetry 96 95 Oxygen Delivery Method Room Air Room Air Room Air Sepsis New/Unexplained Change in Mental Status N/A Sepsis Action Taken by Nursing No Action Required 11/02/22 01:00 11/02/22 03:00 Temperature Temperature Source Pulse Rate Pulse Rate [Apical] 68 63 Pulse Rhythm [Apical] Regular Respiratory Rate 18 16 Respiratory Effort / Characteristics Respiratory Depth Normal Normal Blood Pressure Blood Pressure [Right Arm] 130/93 126/84 Blood Pressure Mean Blood Pressure Mean [Right Arm] 105 98 Pulse Oximetry 97 96 Oxygen Delivery Method Room Air Room Air Sepsis New/Unexplained Change in Mental Status Sepsis Action Taken by Nursing Laboratory Data Attestation: I reviewed the patient's lab results. Result diagrams: 11/01/22 21:51 11/01/22 21:51 Lab Results 11/01/22 11/01/22 11/01/22 Range/Units 21:51 21:51 21:51 WBC 15.93 H (4.8-10.8) K/ul RBC 5.10 (3.93-5.22) M/uL Hgb 15.8 (12.0-16.0) g/dl Hct 47.0 H (34.1-44.9) % MCV 92.2 (80.0-100.0) fL MCH 31.0 (25.0-34.0) pg MCHC 33.6 (32.0-36.0) g/dL RDW Std Deviation 46.9 H (36.4-46.3) fL RDW Coeff of Aydin 13.9 (11.5-14.5) % Plt Count 252 (130-400) K/uL MPV 11.6 (9.4-12.3) fL Immature Gran % (Auto) 0.9 % Neut % (Auto) 66.6 % Lymph % (Auto) 24.6 % [place] % (Auto) 6.5 % Eos % (Auto) 0.8 % Baso % (Auto) 0.6 % Neut # (Auto) 10.61 H (1.4-6.5) K/uL Lymph # (Auto) 3.92 H (1.2-3.4) K/uL [place] # (Auto) 1.04 H (0.24-0.82) K/uL Eos # (Auto) 0.13 (0-0.50) K/uL Baso # (Auto) 0.09 (0-0.2) K/uL Immature Gran # (Auto) 0.14 H (0.00-0.02) K/uL PT 10.0 (9.0-12.0) Seconds INR 0.9 (0.9-1.1) APTT 24.5 (21.0-31.0) Seconds PTT Ratio 0.9 Sodium 138 (136-145) mmol/L Potassium 4.0 (3.5-5.1) mmol/L Chloride 104 (98-107) mmol/L Carbon Dioxide 29 (21-32) mmol/L Anion Gap 5 (3-11) BUN 15 (6-23) mg/dl Creatinine 1.19 (0.6-1.2) mg/dl Est Cr Clr Drug Dosing 60.9 ml/min Est GFR ( Amer) 60.4 ml/min Est GFR (Non-Af Amer) 52.1 ml/min BUN/Creatinine Ratio 12.6 (10-20) Glucose 106 H (70-99(Fasting)) mg/dl Calcium 8.8 (8.5-10.1) mg/dl Total Bilirubin 0.2 (0.2-1.0) mg/dl AST 12 L (13-39) U/L ALT 21 (7-52) U/L Alkaline Phosphatase 93 (34-104) U/L Troponin I High Sens 118.4 H* (0-14) pg/ml Total Protein 6.8 (6.0-8.3) gm/dl Albumin 4.2 (3.4-5.0) gm/dl Globulin 2.6 (2.5-4.0) gm/dl Albumin/Globulin Ratio 1.6 (0.9-2) SARS-CoV-2, RNA, NAAT (NEGATIVE) 11/02/22 11/02/22 Range/Units 00:18 01:23 WBC (4.8-10.8) K/ul RBC (3.93-5.22) M/uL Hgb (12.0-16.0) g/dl Hct (34.1-44.9) % MCV (80.0-100.0) fL MCH (25.0-34.0) pg MCHC (32.0-36.0) g/dL RDW Std Deviation (36.4-46.3) fL RDW Coeff of Aydin (11.5-14.5) % Plt Count (130-400) K/uL MPV (9.4-12.3) fL Immature Gran % (Auto) % Neut % (Auto) % Lymph % (Auto) % [place] % (Auto) % Eos % (Auto) % Baso % (Auto) % Neut # (Auto) (1.4-6.5) K/uL Lymph # (Auto) (1.2-3.4) K/uL [place] # (Auto) (0.24-0.82) K/uL Eos # (Auto) (0-0.50) K/uL Baso # (Auto) (0-0.2) K/uL Immature Gran # (Auto) (0.00-0.02) K/uL PT (9.0-12.0) Seconds INR (0.9-1.1) APTT (21.0-31.0) Seconds PTT Ratio Sodium (136-145) mmol/L Potassium (3.5-5.1) mmol/L Chloride (98-107) mmol/L Carbon Dioxide (21-32) mmol/L Anion Gap (3-11) BUN (6-23) mg/dl Creatinine (0.6-1.2) mg/dl Est Cr Clr Drug Dosing ml/min Est GFR ( Amer) ml/min Est GFR (Non-Af Amer) ml/min BUN/Creatinine Ratio (10-20) Glucose (70-99(Fasting)) mg/dl Calcium (8.5-10.1) mg/dl Total Bilirubin (0.2-1.0) mg/dl AST (13-39) U/L ALT (7-52) U/L Alkaline Phosphatase (34-104) U/L Troponin I High Sens 157.0 H* D (0-14) pg/ml Total Protein (6.0-8.3) gm/dl Albumin (3.4-5.0) gm/dl Globulin (2.5-4.0) gm/dl Albumin/Globulin Ratio (0.9-2) SARS-CoV-2, RNA, NAAT NEGATIVE (NEGATIVE) Administered Medications Heparin Sodium/Dextrose (Heparin Sodium/Dextrose) 25,000 units in 500 mls @ 25 mls/hr IV .Q20H [facility]; Protocol Stop: 12/02/22 02:29 Last Admin: 11/02/22 02:37 Dose: 1,250 units/hr, 25 mls/hr Documented By: ALBERT Co-signed By: LANI Discontinued Medications Aspirin (Aspirin Chew 324 Mg) 324 mg PO NOW STA Stop: 11/02/22 01:36 Last Admin: 11/02/22 01:43 Dose: 324 mg Documented By: ALBERT Sodium Chloride (Nss 1000ml) 1,000 mls @ 999 mls/hr IV .Q1H1M ONE Stop: 11/02/22 01:17 Last Infusion: 11/02/22 02:25 Dose: 0 mls/hr Documented By: Admin: 11/02/22 01:21 Dose: 999 mls/hr Documented By: ALBERT Nitroglycerin (Nitroglycerin Sl 0.4 Mg/Tab Tab) 0.4 mg SL NOW STA Stop: 11/02/22 02:14 Last Admin: 11/02/22 02:24 Dose: 0.4 mg Documented By: EMB Imaging Data Radiologist's Impression: [facility] Preliminary Findings Only See Final Report For Complete Findings CTA CHEST: There is excellent opacification of the pulmonary arterial tree, no pulmonary arterial filling defect is seen. There is mosaic attenuation of the lungs which likely reflects air trapping. No dense consolidation, pleural effusion, or pneumothorax. There are dense coronary vascular calcifications. Radiologist: Raulito Rojas MD Study ready at 01:12 and initial results transmitted at 01:20 Discharge Plan Visit Data Chief Complaint: Cardiac Assessment Stated Complaint: CHEST PAIN, L ARM NUMB, FACE TINGLING ED Provider: J Luis Gay Discharge Problem: Atypical chest pain, Elevated troponin, Current every day smoker Forms Stand Alone Forms: [facility] [employer] Prescriptions Prescriptions: No Action acetaminophen [Tylenol] 325 mg Tablet 650 mg PO QID PRN (Reason: Pain) sucralfate 1 gram tablet 1 g PO ACHS PRN (Reason: Acid Reflux) prednisone 5 mg tablet 5 mg PO .TAPER UD Rx Instructions: DOWN TO 2 TABS A DAY hydrocortisone [Proctozone-HC] 2.5 % cream with perineal applicator 1 applic [place] BID PRN (Reason: Hemorrhoids) methotrexate sodium 2.5 mg tablet 15 mg PO .QFRI omeprazole 20 mg capsule,delayed release(DR/EC) 20 mg PO DAILY PRN (Reason: Acid Reflux) folic acid 1 mg tablet 1 mg PO QAM montelukast 10 mg Tablet 10 mg PO DAILY PRN (Reason: Allergy Symptoms) betamethasone dipropionate 0.05 % ointment 1 applic TOPICAL BID Rx Instructions: APPLY TO LEFT ARM. Referrals Referrals: Dorene Viera MD [Primary Care Provider] -
[2022-11-02] MEDS ORDERED: PROMETHAZINE HCL 12.5 MG in SODIUM CHLORIDE 0.9% 50 ML IV PRN (03:44)
[2022-11-02] MEDS ORDERED: traMADol HCL 50 MG TABLET PO PRN (03:44)
[2022-11-02] MEDS ORDERED: METOPROLOL TARTRATE 25 MG TAB PO STA (03:44)
[2022-11-02] MEDS ORDERED: MoRPHine SULFATE 4 MG/ML 1 ML CARP\\VIAL IV PRN (03:44)
[2022-11-02] MEDS ORDERED: LORazepam 0.5 MG TAB PO PRN (03:44)
[2022-11-02 03:58] LABS: Magnesium 2.2 mg/dl (1.7-2.4)
[2022-11-02] MEDS ORDERED: SUCRALFATE 1 GM TAB PO PRN (05:33)
[2022-11-02] MEDS ORDERED: MONTELUKAST SODIUM 10 MG TABLET PO PRN (05:33)
[2022-11-02] MEDS ORDERED: PANTOprazole 40 MG TAB PO PRN (05:33)
[2022-11-02] MEDS ORDERED: NITROGLYCERIN SL 0.4 MG/TAB TAB SL PRN (05:33)
[2022-11-02] MEDS ORDERED: ACETAMINOPHEN 325 MG TAB PO PRN (05:33)
[2022-11-02 07:06] LABS: Partial Thromboplastin Ratio 1.3
--- NOTE | 2022-11-02 08:40 | CT Scan Report ---
CT ANGIOGRAPHY OF THE CHEST, PULMONARY EMBOLUS PROTOCOL CLINICAL HISTORY: Chest pain, elevated troponin, r/o PE COMPARISON STUDY: Chest radiographs April 27, 2017 and November 01, 2022. TECHNIQUE: Following IV administration of 100 mL of Optiray, helical axial images of the chest were o btained utilizing the pulmonary embolus protocol. Maximal intensity projections and sagittal and cor onal reformats were viewed on an independent 3D workstation. IV contrast was administered without co mplication. Automated exposure control was utilized for the study. A dose lowering technique was ut ilized adhering to the principles of ALARA. CT DOSE: 573.13 mGy.cm FINDINGS: No pulmonary emboli are identified. Mild cardiomegaly is noted. There is moderate to exten sive coronary artery calcification. No pericardial effusion is present. There is no thoracic aortic d issection. No enlarged thoracic lymph nodes are present. No pneumothorax or pleural effusion is noted . Groundglass opacities are noted with mosaic attenuation. No acute fracture within the visualized rowdy ny thorax is noted. There is hepatic steatosis. IMPRESSION: 1. No pulmonary emboli identified. 2. Mild cardiomegaly. Moderate to extensive coronary artery calcification. 3. Ground glass opacities with mosaic attenuation within the lungs. This may reflect air trapping. ACT 112: Negative or not required by law. Electronically signed by: Evelio Moore M.D. 11/02/2022 8:38 AM
[2022-11-02 08:44] LABS: Partial Thromboplastin Ratio 1.4; Partial Thromboplastin Time 37.8 Seconds (21.0-31.0)
[2022-11-02] MEDS ORDERED: ATORVASTATIN 20 MG TAB PO SCH (09:00)
[2022-11-02] MEDS: FOLIC ACID 1 MG TAB PO SCH (09:18)
[2022-11-02] MEDS: predniSONE 5 MG TAB PO SCH (09:18)
[2022-11-02] MEDS: ASPIRIN 81 MG ECTAB PO SCH (09:18)
[2022-11-02] MEDS ORDERED: HEPARIN (PORCINE) 1000 UNIT/ML 10 ML (CATH LAB USE ONLY) ONE ×2 (09:53→11:52)
[2022-11-02] MEDS ORDERED: MIDAZOLAM HCL 1 MG/ML 2ML VIAL ONE ×2 (09:54→12:03)
[2022-11-02] MEDS ORDERED: niCARdipine HCL INJ 2.5 MG/ML 10 ML AMP ONE (09:54)
[2022-11-02] MEDS ORDERED: fentaNYL citrate 100 MCG/2 ML VIAL ONE ×2 (09:54→12:40)
[2022-11-02] MEDS ORDERED: NITROGLYCERIN/D5W 100MCG/ML 20ML SYR ONE ×2 (09:55→11:37)
--- NOTE | 2022-11-02 10:05 | Pre Anesthesia Assessment ---
Date of Service November 02, 2022 Pre Sedation Assessment Vital Signs Temp Pulse Pulse Resp BP BP BP 11/02/22 09:43 65 20 124/90 11/02/22 07:55 36.6 C 66 18 119/82 11/02/22 05:27 65 11/02/22 05:15 36.5 C 65 16 143/89 H 11/02/22 05:15 36.5 C 65 16 143/89 H 11/02/22 05:00 74 16 135/97 11/02/22 04:00 74 16 124/89 11/02/22 03:00 63 16 126/84 11/02/22 01:00 68 18 130/93 11/01/22 23:40 11/01/22 23:40 74 16 131/91 11/01/22 21:42 36.5 C 87 20 137/92 Pulse Ox O2 Del Method 11/02/22 09:43 94 Room Air 11/02/22 07:55 93 Room Air 11/02/22 05:27 11/02/22 05:15 96 Room Air 11/02/22 05:15 96 Room Air 11/02/22 05:00 95 Room Air 11/02/22 04:00 95 11/02/22 03:00 96 Room Air 11/02/22 01:00 97 Room Air 11/01/22 23:40 Room Air 11/01/22 23:40 95 Room Air 11/01/22 21:42 96 Room Air Cardiovascular RRR, no murmur, no edema + femoral pulses present and + radial pulses present no pedal edema Respiratory normal respiratory effort, lungs clear to auscultation Pre-Sedation Airway Assessment Smoking Status: Current every day smoker Hx Sleep Apnea: No Short, Thick Neck: No Thyromental Distance: > or= 3.5 Finger Breadths Oral Cavity: + WNL Mallampati Class: III ASA: ASA3 NPO Status Date of Last Intake of Fluids: 11/02/22 Time of Last Intake of Fluids: 09:20 Last Oral Intake of Fluids Comment: Sips Date of Last Intake of Solid Food: 11/02/22 Time of Last Intake of Solid Foods: 19:00 Procedure Planning Contraindications for Sedation: none Current Medications Reviewed: Yes Notes The planned sedation has been discussed with the patient. Informed Consent was obtained. I have identified the patient, determined the appropriateness of sedation and have assessed the patient immediately prior to the procedure. All medicine(s) and interventions are by my order.
[2022-11-02] MEDS ORDERED: LIDOCAINE 1% LOCAL 20 ML VIAL ONE (10:09)
--- NOTE | 2022-11-02 10:10 | Cardiology Consultation ---
Date of Consultation November 02, 2022 Assessment & Plan (1) NSTEMI (non-ST elevated myocardial infarction): 52-year-old female with concerning history of intermittent chest pain radiating to the jaw and left shoulder extended episode 1 week ago and recurrent symptoms last evening. Cardiac enzymes consistent with non-ST segment elevation myocardial infarction and echocardiogram reveals localized apical wall motion abnormality Discussed in detail with patient. Recommended proceeding to diagnostic cardiac catheterization. Procedure and risks explained in detail with the patient and informed consent obtained additional risks of coronary intervention if indicated also described. Planned procedure this morning with further recommendations pending results History of Present Illness Reason for Consultation: Non-ST segment elevation myocardial infarction Requesting Physician: Dr Lackey Attending Physician: Neil Everett MD History of Present Illness Patient is a 52-year-old female without prior history of cardiac disease his underlying issues include 1. Psoriatic arthritis on immunosuppressive therapy 2. Hyperlipidemia 3. Chronic tobacco use Patient presents this admission noting stuttering episodes of chest discomfort left arm and jaw over the past 3 weeks. Patient had an extended episode of greater than 30 minutes 1 week ago with spontaneous resolved. Episode returned last evening with pain radiating to jaw and arm relieved with aspirin. No prior history of myocardial infarction angina or congestive heart failure. Did have symptoms of chest pain with with negative stress testing 2 years past No fevers chills or unexplained infections. No bleeding difficulties. Appetite good. Works third shift Smokes 1/2 to 1 pack of cigarettes per day Family history positive for coronary disease EKG sinus rhythm at 82 bpm with biphasic T waves and poor R progression anterior Echocardiogram 11/02/2022: Localized hypokinesis apical septum and apical posterior wall EF 5055% Allergies Allergy/AdvReac Type Severity Reaction Status Date / Time oxycodone AdvReac Intermediate Severe Unverified 11/02/22 03:02 nausea acetaminophen AdvReac Nausea Verified 11/02/22 03:03 [From Darvocet-N] propoxyphene AdvReac Nausea Verified 11/02/22 03:03 [From Darvocet-N] Home Medications Medication Instructions Recorded Confirmed Type acetaminophen 325 mg tablet 650 mg PO QID PRN Pain 11/02/22 11/02/22 History (Tylenol) betamethasone dipropionate 0.05 % 1 applic topical BID 11/02/22 11/02/22 History topical ointment folic acid 1 mg tablet 1 mg PO QAM 11/02/22 11/02/22 History hydrocortisone 2.5 % topical cream 1 applic [place] BID PRN Hemorrhoids 11/02/22 11/02/22 History with perineal applicator (Proctozone-HC) methotrexate sodium 2.5 mg tablet 15 mg PO .QFRI 11/02/22 11/02/22 History montelukast 10 mg tablet 10 mg PO DAILY PRN Allergy Symptoms 11/02/22 11/02/22 History omeprazole 20 mg capsule,delayed 20 mg PO DAILY PRN Acid Reflux 11/02/22 11/02/22 History release prednisone 5 mg tablet 5 mg PO .TAPER UD 11/02/22 11/02/22 History sucralfate 1 gram tablet 1 g PO ACHS PRN Acid Reflux 11/02/22 11/02/22 History Patient History Medical History Arthritis Current every day smoker GERD (gastroesophageal reflux disease) Family History Other No significant family history Social History Smoking Status: Current every day smoker Second Hand Exposure: No; Do You Dip or Chew Tobacco: No; Tobacco Cessation Education Requested by Patient: No Hx Alcohol Use: Yes Hx Substance Use: No Preferred Language: Czech Communication Ability: Effective Tribal Delegate Required: No Beliefs That Will Affect Care: None Current Living Situation: Spouse Other Information That Helps Us Care for You: No Feels Safe at Home: Yes Safety Concerns: Feels Safe At This Time Assistive Devices: Glasses Review of Systems Review of Systems: All systems reviewed & are unremarkable except as noted in HPI & below Physical Exam Constitutional: + obese; no acute distress Eyes: PERRL, conjunctivae normal, anicteric sclerae ENMT: external ear and nose normal, oropharynx normal Neck: trachea midline, no thyromegaly Respiratory: normal respiratory effort, lungs clear to auscultation Cardiovascular: RRR, no murmur, no edema Heart Sounds: no murmur Vessels: normal carotid upstroke, femoral pulses present and radial pulses present; no JVD Extremities: no edema Gastrointestinal (Abdomen): normal bowel sounds, soft, nontender, no hepat osplenomegaly Musculoskeletal: no cyanosis or clubbing, extremities motor strength 5/5 Results & Data ([facility]) Vital Signs (Past 12 Hours) Vital Signs Temp Pulse Pulse Resp BP BP Pulse Ox 11/02/22 09:43 65 20 124/90 94 11/02/22 07:55 36.6 C 66 18 119/82 93 11/02/22 05:27 65 11/02/22 05:15 36.5 C 65 16 143/89 H 96 11/02/22 05:15 36.5 C 65 16 143/89 H 96 11/02/22 05:00 74 16 135/97 95 11/02/22 04:00 74 16 124/89 95 11/02/22 03:00 63 16 126/84 96 11/02/22 01:00 68 18 130/93 97 11/01/22 23:40 11/01/22 23:40 74 16 131/91 95 O2 Del Method 11/02/22 09:43 Room Air 11/02/22 07:55 Room Air 11/02/22 05:27 11/02/22 05:15 Room Air 11/02/22 05:15 Room Air 11/02/22 05:00 Room Air 11/02/22 04:00 11/02/22 03:00 Room Air 11/02/22 01:00 Room Air 11/01/22 23:40 Room Air 11/01/22 23:40 Room Air Laboratory Results Laboratory Results - last 24 hr 11/01/22 11/01/22 11/01/22 21:51 21:51 21:51 WBC 15.93 H RBC 5.10 Hgb 15.8 Hct 47.0 H MCV 92.2 MCH 31.0 MCHC 33.6 RDW Std Deviation 46.9 H RDW Coeff of Aydin 13.9 Plt Count 252 MPV 11.6 Immature Gran % (Auto) 0.9 Neut % (Auto) 66.6 Lymph % (Auto) 24.6 Wagoner % (Auto) 6.5 Eos % (Auto) 0.8 Baso % (Auto) 0.6 Neut # (Auto) 10.61 H Lymph # (Auto) 3.92 H Wagoner # (Auto) 1.04 H Eos # (Auto) 0.13 Baso # (Auto) 0.09 Immature Gran # (Auto) 0.14 H PT 10.0 INR 0.9 APTT 24.5 PTT Ratio 0.9 Sodium 138 Potassium 4.0 Chloride 104 Carbon Dioxide 29 Anion Gap 5 BUN 15 Creatinine 1.19 Est Cr Clr Drug Dosing 60.9 Est GFR ( Amer) 60.4 Est GFR (Non-Af Amer) 52.1 BUN/Creatinine Ratio 12.6 Glucose 106 H Calcium 8.8 Magnesium 2.2 Total Bilirubin 0.2 AST 12 L ALT 21 Alkaline Phosphatase 93 Troponin I High Sens 118.4 H* Total Protein 6.8 Albumin 4.2 Globulin 2.6 Albumin/Globulin Ratio 1.6 SARS-CoV-2, RNA, NAAT 11/02/22 11/02/22 11/02/22 00:18 01:23 05:52 WBC RBC Hgb Hct MCV MCH MCHC RDW Std Deviation RDW Coeff of Aydin Plt Count MPV Immature Gran % (Auto) Neut % (Auto) Lymph % (Auto) Wagoner % (Auto) Eos % (Auto) Baso % (Auto) Neut # (Auto) Lymph # (Auto) Wagoner # (Auto) Eos # (Auto) Baso # (Auto) Immature Gran # (Auto) PT INR APTT 35.0 H PTT Ratio 1.3 Sodium Potassium Chloride Carbon Dioxide Anion Gap BUN Creatinine Est Cr Clr Drug Dosing Est GFR ( Amer) Est GFR (Non-Af Amer) BUN/Creatinine Ratio Glucose Calcium Magnesium Total Bilirubin AST ALT Alkaline Phosphatase Troponin I High Sens 157.0 H* D Total Protein Albumin Globulin Albumin/Globulin Ratio SARS-CoV-2, RNA, NAAT NEGATIVE 11/02/22 11/02/22 05:52 08:24 WBC RBC Hgb Hct MCV MCH MCHC RDW Std Deviation RDW Coeff of Aydin Plt Count MPV Immature Gran % (Auto) Neut % (Auto) Lymph % (Auto) Wagoner % (Auto) Eos % (Auto) Baso % (Auto) Neut # (Auto) Lymph # (Auto) Wagoner # (Auto) Eos # (Auto) Baso # (Auto) Immature Gran # (Auto) PT INR APTT 37.8 H PTT Ratio 1.4 Sodium Potassium Chloride Carbon Dioxide Anion Gap BUN Creatinine Est Cr Clr Drug Dosing Est GFR ( Amer) Est GFR (Non-Af Amer) BUN/Creatinine Ratio Glucose Calcium Magnesium Total Bilirubin AST ALT Alkaline Phosphatase Troponin I High Sens 157.6 H* Total Protein Albumin Globulin Albumin/Globulin Ratio SARS-CoV-2, RNA, NAAT
--- NOTE | 2022-11-02 10:45 | XRay Report ---
XR chest 1V not portable CLINICAL HISTORY: Atypical chest pain. COMPARISON STUDY: Chest radiograph April 27, 2017. FINDINGS: Lung volumes are normal. Lungs are clear. There is no pneumothorax or pleural effusion. Car diac size is at the upper limits of normal. Mediastinal contours are normal. There is no evidence for pulmonary edema. IMPRESSION: No acute cardiopulmonary findings. ACT 112: Negative or not required by law. Electronically signed by: Evelio Moore M.D. 11/02/2022 10:44 AM
--- NOTE | 2022-11-02 10:47 | Post Anesthesia Assessment ---
Date of Service November 02, 2022 Post Sedation Assessment Vital Signs Temp Pulse Pulse Resp BP BP BP 11/02/22 09:43 65 20 124/90 11/02/22 07:55 36.6 C 66 18 119/82 11/02/22 05:27 65 11/02/22 05:15 36.5 C 65 16 143/89 H 11/02/22 05:15 36.5 C 65 16 143/89 H 11/02/22 05:00 74 16 135/97 11/02/22 04:00 74 16 124/89 11/02/22 03:00 63 16 126/84 11/02/22 01:00 68 18 130/93 11/01/22 23:40 11/01/22 23:40 74 16 131/91 11/01/22 21:42 36.5 C 87 20 137/92 Pulse Ox O2 Del Method 11/02/22 09:43 94 Room Air 11/02/22 07:55 93 Room Air 11/02/22 05:27 11/02/22 05:15 96 Room Air 11/02/22 05:15 96 Room Air 11/02/22 05:00 95 Room Air 11/02/22 04:00 95 11/02/22 03:00 96 Room Air 11/02/22 01:00 97 Room Air 11/01/22 23:40 Room Air 11/01/22 23:40 95 Room Air 11/01/22 21:42 96 Room Air Recovery Score Activity: Moves 4 extremities Respiration: Deep Breath/Cough Circulation: +/-20% PreAnes Value Consciousness: Fully Awake Oxygen Saturation: > 92% On Room Air Discharge Sedation Level of Care: Phase I Post Sedation Plan On clinical assessment, the patient appears to have tolerated the sedation without complications. Patient is recovering as anticipated. Patient will continue to be monitored by nursing and may be discharged when sedation discharge criteria are met per below protocol. Upon Completions of procedure up to 15 minutes continue every 5 minute vital signs and the P.A.R. score; then discharge to a Phase I or Fast Track to Phase II per the following guidelines: * Discharge Patient to appropriate Phase II area if PAR is 8 or greater or return to pre- procedure baseline. The post - procedure orders will be as directed. * If PAR score is less than 8 or not return to pre-procedure baseline then patient will follow Phase I monitoring till PAR is reached for Phase II. The Phase I may be done in procedure room or may call to secure a Phase I area. * If naloxone or flumazenil are used for reversal, hold in Phase I for continued monitoring from when last reversal dose was given for a minimum of 60 minutes or longer pending the nurse and/or physician discretion of patient condition before discharge to Phase II. Please call the Sedation Physician to re-evaluate and complete post-note for discharge to Phase II area. Do NOT discharge from procedure sedation or Phase 1 until post- sedation evaluation note is complete by procedure /sedation MD Sedation Discharge Instructions to be given to the patient at discharge to home.
--- NOTE | 2022-11-02 10:55 | Cardiac Catheterization ---
Cardiac Cath Procedure Brief Procedure Date November 02, 2022 Pre-Procedure Diagnosis Pre-Procedure Diagnosis: Non STEMI and Angina AUC Score AUC Score: 7 Post-Procedure Diagnosis Post-Procedure Diagnosis: Severe CAD Procedure(s) Performed Procedure(s) Performed: Coronary Angiography and Left Heart Cath Waste Baler Josias Monzon MD Market News Reporter(s) Agueda Bennett Estimated Blood Loss Estimated Blood Loss: <15cc Medication(s) Medication(s): Fentanyl (12.5 mcg IV), Heparin (2500 units onset of case, 5000 units at completion), Lidocaine 1% (Local infiltration access site), Nicardipine (250 mcg intra-arterial after arterial sheath insertion x2), Nitroglycerin (200 mcg intra-arterial after sheath insertion x2) and Versed (1 mg IV) Preliminary Findings Impression: Left dominant coronary anatomy Diffuse coronary atherosclerosis with serial severe stenoses mid left anterior descending and left circumflex posterolateral branch Recommendations Recommendations: PCI without planned CABG Specimens Specimens: None Fluids (cc crystalloids) Fluids (cc crystalloids): 65 Anesthesia Start time: 1021, stop time: 1041 Procedural Complication(s) None Disposition Grid Casting Machine Operator Helper Holding/Recovery
--- NOTE | 2022-11-02 11:08 | Cardiac Catheterization ---
Cardiac Cath Procedure Full Procedure Date November 02, 2022 Pre-Procedure Diagnosis Pre-Procedure Diagnosis: Non STEMI and Angina AUC Score AUC Score: 7 Post-Procedure Diagnosis Post-Procedure Diagnosis: Severe CAD Procedure(s) Performed Procedure(s) Performed: Coronary Angiography and Left Heart Cath Business Continuity Management Director Josias Monzon MD Creative Services Producer(s) [facility] Estimated Blood Loss Estimated Blood Loss: <15cc Medication(s) Medication(s): Fentanyl (12.5 mcg IV), Heparin (2500 units onset of case, 5000 units at completion), Lidocaine 1% (Local infiltration access site), Nicardipine (250 mcg intra-arterial after arterial sheath insertion x2), Nitroglycerin (200 mcg intra-arterial after sheath insertion x2) and Versed (1 mg IV) Summary of Findings Impression: Left dominant coronary anatomy Diffuse coronary atherosclerosis with severe stenoses serially x3 in mid left anterior descending and in mid left posterior descending artery Procedure: Left heart catheterization, coronary angiography via right radial access Catheters: 6 [place] long glide sheath, 5 [place] Crockett, 5 [place] straight pigtail, 6 [place] slender sheath Coronary angiography: Left dominant anatomy Left main: Mild to moderately calcified with 20% ostial taper 10% distal. Left anterior descending: Type III in distribution. It gives rise to a trivial first diagonal, a large bifurcating septal branch long but thin and diffusely diseased second diagonal branch in its mid one third and a moderately large second septal branch at the end of its proximal third. Left anterior descending has a 40 to 50% smooth narrowing at its origin, 70% narrowing at its first septal branch, 90% narrowing after its second septal branch and an 80% narrowing in its midportion. The second diagonal branch is diffusely disease with a long area of 80 to 90% stenosis in its proximal portion Ramus intermedius: Trivial vessel Left circumflex: Large caliber dominant vessel. Gives rise to a small first marginal branch, a moderate-sized bifurcating second marginal branch, a trivial third marginal branch and a left posterior descending artery and 3 posterior ventricular branches. There are moderate luminal irregularities in the circumflex proper. There is a 90% narrowing in the mid left posterior descending artery LV angiography: Not performed, LV end-diastolic pressure 10 Hemodynamics Rest Ao:: 135/85/119 Final Ao: 97/61/78 LV: 99/0/10 Recommendations Recommendations: PCI without planned CABG Specimens Specimens: None Radiation Exposure (mGy) 702 Contrast (mls) 40 Fluids (cc crystalloids) Fluids (cc crystalloids): 65 Anesthesia Start time: 1021, stop time: 1041 Procedural Complication(s) None Disposition Jr. Java Developer Holding/Recovery I attest to the content of the Intraoperative Record and any orders documented therein. Any exceptions are noted below. ACC Data: Jr. Java Developer Cardiac Status Clinical evaluation leading to the procedure 52-year-old without prior cardiac disease presenting with symptoms of prolonged angina pectoris x2 weeks left shoulder arm pain radiating to left jaw with extended episode resulting in ER presentation, relief with aspirin Troponin elevated consistent with non-ST segment elevation myocardial infarction. Echocardiogram with focal hypokinesis apical septum and apical posterior wall CAD Presenation: Non STEMI Anginal Classification: CCS IV Heart Failure: No Cardiogenic Shock within 24 Hours: No Cardiac Arrest within 24 Hours: No Imaging Studies Past 6 Months: Yes Stress Studies Past 6 Months: No Standard Exercise Test: No Stress Echocardiogram: No Cardiac CTA: No Coronary Anatomy Dominant: Left Left Main (% Stenosis): Ostial (20) and Distal (10) LAD (% Stenosis): Ostial (40) and Mid (Serial lesions of 70, 90, 80) D1 (% Stenosis): Normal (Small vessel) D2 (% Stenosis): Proximal (90 with diffuse disease) Circumflex (% Stenosis): Mid (Moderate irregularities) OM1 (% Stenosis): Normal (Small caliber) OM2 (% Stenosis): Mid (Moderate irregularities moderate caliber vessel) L PL1 (% Stenosis): Normal L PL2 (% Stenosis): Normal L PDA (% Stenosis): Mid (90) RCA (% Stenosis): Mid (Nondominant vessel with moderate irregularities) Ramus (% Stenosis): Normal (Trivial vessel) Diagnostic Physicians Name: Josias Monzon MD Closure Device Recommendations: PCI without planned CABG
[2022-11-02] MEDS ORDERED: CLOPIDOGREL BISULFATE 300 MG TAB ONE (13:19)
--- NOTE | 2022-11-02 13:37 | Post Anesthesia Assessment ---
Date of Service November 02, 2022 Post Sedation Assessment Vital Signs Temp Pulse Pulse Resp BP BP BP 11/02/22 11:15 62 18 114/73 11/02/22 11:00 65 18 117/73 11/02/22 10:45 66 18 105/77 11/02/22 09:43 65 20 124/90 11/02/22 07:55 97.9 F 66 18 119/82 11/02/22 05:27 65 11/02/22 05:15 97.7 F 65 16 143/89 H 11/02/22 05:15 97.7 F 65 16 143/89 H 11/02/22 05:00 74 16 135/97 11/02/22 04:00 74 16 124/89 11/02/22 03:00 63 16 126/84 11/02/22 01:00 68 18 130/93 11/01/22 23:40 11/01/22 23:40 74 16 131/91 11/01/22 21:42 97.7 F 87 20 137/92 Pulse Ox O2 Del Method 11/02/22 11:15 94 Room Air 11/02/22 11:00 95 Room Air 11/02/22 10:45 90 Room Air 11/02/22 09:43 94 Room Air 11/02/22 07:55 93 Room Air 11/02/22 05:27 11/02/22 05:15 96 Room Air 11/02/22 05:15 96 Room Air 11/02/22 05:00 95 Room Air 11/02/22 04:00 95 11/02/22 03:00 96 Room Air 11/02/22 01:00 97 Room Air 11/01/22 23:40 Room Air 11/01/22 23:40 95 Room Air 11/01/22 21:42 96 Room Air Recovery Score Activity: Moves 4 extremities Respiration: Deep Breath/Cough Circulation: +/-20% PreAnes Value Consciousness: Fully Awake Oxygen Saturation: > 92% On Room Air Post Anesthesia Score: 10 Discharge Sedation Level of Care: Fast Track Phase II Post Sedation Plan On clinical assessment, the patient appears to have tolerated the sedation without complications. Patient is recovering as anticipated. Patient will continue to be monitored by nursing and may be discharged when sedation discharge criteria are met per below protocol. Upon Completions of procedure up to 15 minutes continue every 5 minute vital signs and the P.A.R. score; then discharge to a Phase I or Fast Track to Phase II per the following guidelines: * Discharge Patient to appropriate Phase II area if PAR is 8 or greater or return to pre- procedure baseline. The post - procedure orders will be as directed. * If PAR score is less than 8 or not return to pre-procedure baseline then patient will follow Phase I monitoring till PAR is reached for Phase II. The Phase I may be done in procedure room or may call to secure a Phase I area. * If naloxone or flumazenil are used for reversal, hold in Phase I for continued monitoring from when last reversal dose was given for a minimum of 60 minutes or longer pending the nurse and/or physician discretion of patient condition before discharge to Phase II. Please call the Sedation Physician to re-evaluate and complete post-note for discharge to Phase II area. Do NOT discharge from procedure sedation or Phase 1 until post- sedation evaluation note is complete by procedure /sedation MD Sedation Discharge Instructions to be given to the patient at discharge to home.
[2022-11-02] MEDS ORDERED: SODIUM CHLORIDE 0.9% 1000ML 1,000 ML IV SCH (13:45)
--- NOTE | 2022-11-02 16:56 | Electrocardiogram Report ---
Test Reason : Blood Pressure : / mmHG Vent. Rate : 082 BPM Atrial Rate : 082 BPM P-R Int : 154 ms QRS Dur : 076 ms QT Int : 348 ms P-R-T Axes : 016 017 041 degrees QTc Int : 406 ms Normal sinus rhythm Poor R wave progression, consider anterior VA vs. lead placement vs. LVH Abnormal ECG When compared with ECG of 27-APR-2017 18:53, Nonspecific T wave abnormality, worse in Anterior leads Confirmed by Shady Nunez ([id number]) on 11/02/2022 4:55:45 PM Referred By: REFERRED SELF Confirmed By:Shady Nunez
[2022-11-02] MEDS: METOPROLOL TARTRATE 25 MG TAB PO SCH (19:42)
--- NOTE | 2022-11-02 19:44 | Hospitalist Progress Note ---
Date of Service November 02, 2022 Assessment & Plan (1) NSTEMI (non-ST elevated myocardial infarction): Plan: Coronary disease Status post PCI with stent placement Aspirin plus Plavix Lipitor 40 mg Metoprolol 12.5 mg twice daily Monitor overnight hyperlipidemia --Lipitor started GERD stable on regimen psoriatic arthritis ongoing steroid taper for knee pain ongoing tobacco abuse Disposition Anticipate discharge to home tomorrow when cleared by cardiology service Admission and Anticipated Discharge Date Admission Date: November 02, 2022 Subjective Follow-up for NSTEMI, etc. Status post PCI with stent placement Seen resting in bed, comfortable, not in distress States she feels fine overall just tired No chest pain, shortness of breath, palpitations, dizziness Having some bleeding on the radial puncture site, RN managing the bleeding with pressure application No other symptoms Review of Systems Review of Systems: all noted and negative except for above Physical Exam Physical Exam: General- oriented x 3, not in distress, speaks in sentences with no effort or accessory muscle use Eyes- anicteric Neck- no JVD Lungs- clear breath sounds bilaterally, no rales/wheezes Heart- normal rate, regular rhythm; no murmurs Abdomen- normal bowel sounds, nondistended, soft, nontender Extremities- no pretibial edema, no calf tenderness Right radial puncture site: Mild bleeding Neuro- alert, oriented x 3; no gross focal neurologic deficits Skin- warm & dry Results & Data Results & Data ([facility]) Vital Signs (Past 12 Hours) Vital Signs Temp Pulse Resp BP BP Pulse Ox O2 Del Method 11/02/22 19:20 36.6 C 71 16 120/76 96 Room Air 11/02/22 18:23 75 18 104/71 94 Room Air 11/02/22 17:23 75 18 113/76 94 Room Air 11/02/22 16:23 36.6 C 61 18 127/85 96 Room Air 11/02/22 15:23 60 18 124/82 94 Room Air 11/02/22 14:53 69 18 115/76 95 Room Air 11/02/22 14:23 64 18 109/76 92 Room Air 11/02/22 14:08 36.8 C 68 18 124/77 92 Room Air 11/02/22 13:45 60 20 113/82 94 Room Air 11/02/22 13:35 62 20 140/88 94 Room Air 11/02/22 11:15 62 18 114/73 94 Room Air 11/02/22 11:00 65 18 117/73 95 Room Air 11/02/22 10:45 66 18 105/77 90 Room Air 11/02/22 09:43 65 20 124/90 94 Room Air 11/02/22 07:55 36.6 C 66 18 119/82 93 Room Air all noted and reviewed including below
--- NOTE | 2022-11-03 00:15 | Cardiac Catheterization ---
[facility] Data: [employer] Cardiac Status Clinical evaluation leading to the procedure CAD Presenation: Non STEMI Anginal Classification: CCS IV Diagnostic Physicians Name: Faheem Elliott MD Closure Device Recommendations: PCI without planned CABG Cardiac Cath Procedure Full Procedure Date November 03, 2022 Pre-Procedure Diagnosis Pre-Procedure Diagnosis: Non STEMI and Angina AUC Score AUC Score: 7 Post-Procedure Diagnosis Post-Procedure Diagnosis: Severe CAD and Successful PCI Procedure(s) Performed Procedure(s) Performed: Coronary Angiography, Drug Eluting Stent and IVUS Precision Optics Technician Faheem Elliott MD Chair Maker(s) Rajat Estimated Blood Loss Estimated Blood Loss: <15cc Medication(s) Medication(s): Clopidogrel, Fentanyl (12.5 mcg IV), Heparin (2500 units onset of case, 5000 units at completion), Lidocaine 1%, Nicardipine (250 mcg intra- arterial after arterial sheath insertion x2), Nitroglycerin (200 mcg intra- arterial after sheath insertion x2) and Versed (1 mg IV) Summary of Findings Indication: NSTEMI Access: 6 Fr right radial artery, 6 Fr right PICK UP ATTENDANT under ultrasound guidance Catheters: EBU 3.5 guide Findings: For full details of patient's coronary angiography please see cath report dictated by Dr. Monzon. Briefly, patient found to have multiple sequential severe lesions from proximal to mid LAD. Decision to proceed with PCI. -- PCI -- Antithrombotic therapy: Heparin, clopidogrel Procedure: Procedure initially began by Dr. Monzon. Diagnostic images reviewed and we agreed to proceed with PCI. A second more acute procedure ongoing at same time and decision made to return patient to [employer] holding area with right radial artery sheath in place Patient returned to [employer] Strip [employer] and prior sheath exchanged for new 6 Fr sheath Unable to pass 6 Fr guide, 45 cm destination sheath across severe brachial artery spasm above the elbow Decision to convert procedure to femoral approach and 6 Fr sheath placed to right PICK UP ATTENDANT under ultrasound guidance Left main cannulated with EBU 3.5 guide Pre-procedure flow IMAN 2-3 Crisis Nurse 50 wire passed across lesions into distal LAD Whisper wire placed into second diagonal Mid LAD lesions, proximal LAD lesion dilated with 2.0 balloon Proximal D2 subtotal occlusion dilated with 2.0 balloon Post balloon inflation limited flow in mid to distal LAD due to early mid LAD dissection Mid LAD lesion predilated with 2.5 balloon With the aid of a GuideLiner latemid LAD lesions stented with 3 overlapping ZEE (2.25 x 15, 2.25 x 15, 2.25 x 12 mm [place]). Stents postdilated with stent balloon to high atmospheres Proximal/earlymid LAD lesion stented with 2.5 x 12 mm [place] drug-eluting stent Stent post-dilated with 3.0 noncompliant balloon IC vasodilators administered for spasm [place] IVUS catheter passed into proximal stent, pullback revealed well apposed, well-expanded proximal stent, no apparent edge complications. Noted to have 40 to 50% ostial LAD stenosis, minimal left main disease. Post procedure IMAN 3 flow in LAD and D2, stents well expanded with minimal residual stenosis and no apparent cardiac complications. Arterial Closure: TR band, StarClose Summary: 1. Successful PCI of proximal LAD stenosis with 2.5 x 12 mm [place] ZEE (postdilated with 3.0 NC). 2. Successful PCI of sequential mid LAD lesions with 3 overlapping ZEE (2.25 x 15, 2.25 x 15, 2.25 x 12 mm [place]). 3. Successful angioplasty proximal D2 with 2.0 balloon 4. Residual moderate ostial LAD stenosis (40-50% by IVUS). Recommendations: To PCU for continued monitoring Loaded with 600 mg in [employer] Strip Inspector Continue dual-antiplatelet therapy for at least 1 year. Consider extended DAPT with complex disease, now 4 stents in LAD. Continue statin, and ASCVD risk factor modification Consult cardiac Rehab Hemodynamics Rest Ao:: 103/67/87 Final Ao: 143/77 LV: None 08/08 Recommendations Recommendations: PCI without planned CABG Specimens Specimens: None Radiation Exposure (mGy) 5277 Contrast (mls) 100 Fluids (cc crystalloids) Fluids (cc crystalloids): 385 Anesthesia Start time: 1154, stop time: 1327 Procedural Complication(s) None Disposition PCU I attest to the content of the Intraoperative Record and any orders documented therein. Any exceptions are noted below. [facility] Card Cath Procedure Codes Therapeutic Services & Ancillary Procedure 1: Cardiovascular Tx and Anc Procedures: 56946 Ultrasonic Guidance Vascular Access Procedure 2: Cardiovascular Tx and Anc Procedures: 62191 IV Ultrasound (Coronary or Graft) Moderate Sedation Procedure 1: Sedation/Anesthesia: 88198 Mod Sedation by the same physician; Guillermo Caldwell [email or web address] Minutes Stenting Procedure 1: Cardiovascular Stent Procedures: 51056 Perc transcatheter placement of intracoronary stent(s), with ang PG Care Time/CCT Total # of Minutes Spent Total Time Spent with Patient: Total time spent is greater than 50% in coordination of care (as documented) at patient's floor/unit and/or counseling patient:
[2022-11-03 06:20] LABS: Basophils # (auto) 0.07 K/uL (0-0.2); Basophils % (auto) 0.5 %; Eosinophils # (auto) 0.11 K/uL (0-0.50); Eosinophils % (auto) 0.8 %; Hematocrit (blood only) 43.1 % (34.1-44.9); Hemoglobin 14.3 g/dl (12.0-16.0); Immature Granulocytes % (auto) 0.7 %; Lymphocytes # (auto) 3.73 K/uL (1.2-3.4); Lymphocytes % (auto) 27.6 %; Mean Corpuscular Hemoglobin 30.8 pg (25.0-34.0); Mean Corpuscular Hgb Conc 33.2 g/dL (32.0-36.0); Mean Corpuscular Volume 92.9 fL (80.0-100.0); Mean Platelet Volume 11.8 fL (9.4-12.3); Monocytes % (auto) 5.2 %; Neutrophils % (auto) 65.2 %; Platelet Count 221 K/uL (130-400); RDW Coefficient of Variation 14.1 % (11.5-14.5); RDW Standard Deviation 47.5 fL (36.4-46.3); Red Blood Count 4.64 M/uL (3.93-5.22); White Blood Count 13.51 K/ul (4.8-10.8)
[2022-11-03 06:51] LABS: Calcium 8.4 mg/dl (8.5-10.1); Chol HDL Ratio 3.8 (0-5); Creatinine Clr Calc Pharmacy 97.5 ml/min; Est GFR (African American) 107.2 ml/min; Est GFR (Non-African American) 92.5 ml/min; Potassium 3.8 mmol/L (3.5-5.1)
[2022-11-03] MEDS: FOLIC ACID 1 MG TAB PO SCH (07:56)
[2022-11-03] MEDS: ASPIRIN 81 MG ECTAB PO SCH (07:56)
[2022-11-03] MEDS: METOPROLOL TARTRATE 25 MG TAB PO SCH (07:57)
[2022-11-03] MEDS: predniSONE 5 MG TAB PO SCH (07:59)
[2022-11-03] MEDS ORDERED: ATORVASTATIN 40 MG TAB PO SCH (09:00)
[2022-11-03] MEDS ORDERED: CLOPIDOGREL BISULFATE 75 MG TAB PO SCH (09:00)
--- NOTE | 2022-11-03 11:04 | Cardiology Progress Note ---
Date of Service November 03, 2022 Assessment & Plan (1) NSTEMI (non-ST elevated myocardial infarction): Plan: 52-year-old female with concerning history of intermittent chest pain radiating to the jaw and left shoulder extended episode 1 week ago and recurrent symptoms last evening. Cardiac enzymes consistent with non-ST segment elevation myocardial infarction and echocardiogram reveals localized apical wall motion abnormality Cardiac catheterization demonstrated serial stenoses in the proximal and mid left anterior descending with patient undergoing stent implantation and 3 separate areas with good result. Residual disease of 40 to 50% at the ostial left anterior descending and tight stenosis in the distal posterior descending artery Plan Successful drug-eluting stent implantation multiple serial lesions in the left anterior descending Plan: Dual antiplatelet therapy with aspirin and clopidogrel minimum of 6 months Continue beta-lionel metoprolol tartrate 12.5 g twice per day High-dose statin with atorvastatin 40 mg/day (mildly reduced dose secondary to chronic methotrexate use) Low-dose UZIEL inhibitor with lisinopril 2.5mg/day, prescription for sublingual nitroglycerin Cardiac rehab Discussed with patient tobacco cessation mandated Off work until follow-up appointment Cardiology follow-up 1-2 weeks time Admission and Anticipated Discharge Date Admission Date: November 02, 2022 Subjective Patient seen and examined, chart, medications, telemetry reviewed. No chest pain or shortness of breath no arrhythmias overnight ambulatory in room. Right radial and right femoral artery access sites healing. Physical Exam Constitutional: + obese; no acute distress Eyes: PERRL, conjunctivae normal, anicteric sclerae ENMT: Mallampati Class: III Neck: trachea midline, no thyromegaly Respiratory: normal respiratory effort, lungs clear to auscultation Cardiovascular: RRR, no murmur, no edema Heart Sounds: no murmur Vessels: normal carotid upstroke, femoral pulses present and radial pulses present; no JVD Extremities: no pedal edema and no edema Gastrointestinal (Abdomen): normal bowel sounds, soft, nontender, no hepatosplenomegaly Musculoskeletal: no cyanosis or clubbing, extremities motor strength 5/5 Results & Data ([facility]) Vital Signs (Past 12 Hours) Vital Signs Temp Pulse Resp BP BP Pulse Ox O2 Del Method 11/03/22 10:23 36.8 C 80 19 122/79 124/90 94 11/03/22 08:18 36.8 C 80 19 122/79 94 Room Air 11/03/22 02:54 36.5 C 84 18 115/65 94 Room Air Laboratory Results Laboratory Results - last 24 hr 11/02/22 11/02/22 11/03/22 12:22 13:06 05:53 WBC 13.51 H RBC 4.64 Hgb 14.3 Hct 43.1 MCV 92.9 MCH 30.8 MCHC 33.2 RDW Std Deviation 47.5 H RDW Coeff of Aydin 14.1 Plt Count 221 MPV 11.8 Immature Gran % (Auto) 0.7 Neut % (Auto) 65.2 Lymph % (Auto) 27.6 [place] % (Auto) 5.2 Eos % (Auto) 0.8 Baso % (Auto) 0.5 Neut # (Auto) 8.80 H Lymph # (Auto) 3.73 H [place] # (Auto) 0.70 Eos # (Auto) 0.11 Baso # (Auto) 0.07 Immature Gran # (Auto) 0.10 H Activ Coag Time Kaolin 233 H 269 H Sodium Potassium Chloride Carbon Dioxide Anion Gap BUN Creatinine Est Cr Clr Drug Dosing Est GFR ( Amer) Est GFR (Non-Af Amer) BUN/Creatinine Ratio Glucose Calcium Triglycerides Cholesterol LDL Cholesterol, Calc VLDL Cholesterol, Calc HDL Cholesterol Cholesterol/HDL Ratio 11/03/22 05:53 WBC RBC Hgb Hct MCV MCH MCHC RDW Std Deviation RDW Coeff of Aydin Plt Count MPV Immature Gran % (Auto) Neut % (Auto) Lymph % (Auto) [place] % (Auto) Eos % (Auto) Baso % (Auto) Neut # (Auto) Lymph # (Auto) [place] # (Auto) Eos # (Auto) Baso # (Auto) Immature Gran # (Auto) Activ Coag Time Kaolin Sodium 138 Potassium 3.8 Chloride 106 Carbon Dioxide 24 Anion Gap 8 BUN 17 Creatinine 0.74 D Est Cr Clr Drug Dosing 97.5 Est GFR ( Amer) 107.2 Est GFR (Non-Af Amer) 92.5 BUN/Creatinine Ratio 23.0 H Glucose 107 H Calcium 8.4 L Triglycerides 140 Cholesterol 176 LDL Cholesterol, Calc 102 VLDL Cholesterol, Calc 28 HDL Cholesterol 46 Cholesterol/HDL Ratio 3.8
--- NOTE | 2022-11-03 16:39 | Electrocardiogram Report ---
Test Reason : Blood Pressure : / mmHG Vent. Rate : 070 BPM Atrial Rate : 070 BPM P-R Int : 174 ms QRS Dur : 074 ms QT Int : 394 ms P-R-T Axes : 026 039 072 degrees QTc Int : 425 ms Normal sinus rhythm Low voltage QRS Nonspecific T wave abnormality Abnormal ECG When compared with ECG of 01-NOV-2022 21:48, No significant change was found Confirmed by Shady Nunez ([id number]) on 11/03/2022 4:39:34 PM Referred By: REFERRED SELF Confirmed By:Shady Nunez
[2022-11-04] MEDS ORDERED: lisinopril 2.5 MG TAB PO SCH (09:00)
--- NOTE | 2022-11-06 15:12 | Hospitalist Progress Note ---
Date of Service November 06, 2022 delayed entry date of service November 03, 2022 Assessment & Plan (1) NSTEMI (non-ST elevated myocardial infarction): Plan: per Cardiology service: Cardiac enzymes consistent with non-ST segment elevation myocardial infarction and echocardiogram reveals localized apical wall motion abnormality Cardiac catheterization demonstrated serial stenoses in the proximal and mid left anterior descending with patient undergoing stent implantation and 3 separate areas with good result. Residual disease of 40 to 50% at the ostial left anterior descending and tight stenosis in the distal posterior descending artery Successful drug-eluting stent implantation multiple serial lesions in the left anterior descending patient stable overall after procedure chest pain free, asymptomatic ASA and Plavix x at least 6 months Metoprolol tartrate 12.5mg BID Lipitor 40mg daily Lisinopril 2.5mg PO daily No smoking Cardiology follow-up 1-2 weeks time Hyperlipidemia --Lipitor started GERD stable on regimen psoriatic arthritis ongoing steroid taper for knee pain ongoing tobacco abuse Disposition d/c home ff up with PCP in 1 week Pulp Screen Operator in 2 weeks Admission and Anticipated Discharge Date Admission Date: November 02, 2022 Subjective ff up for NSTEMI, etc seen resting in bed, comfortable in good spirits states she feels fine overall no chest pain, dyspnea, palpitations, dizziness no other symptoms states she is ready for discharge Review of Systems Review of Systems: all noted and negative except for above Physical Exam Physical Exam: General- oriented x 3, not in distress, speaks in sentences with no effort or accessory muscle use Eyes- anicteric Neck- no JVD Lungs- clear breath sounds bilaterally, no rales/wheezes Heart- normal rate, regular rhythm; no murmurs Abdomen- normal bowel sounds, nondistended, soft, nontender Extremities- no pretibial edema, no calf tenderness R wrist: no hematoma/bleeding Neuro- alert, oriented x 3; no gross focal neurologic deficits Skin- warm & dry Results & Data Results & Data ([facility]) Vital Signs (Past 12 Hours) all noted and reviewed including below
--- NOTE | 2022-11-06 15:23 | Discharge Summary ---
Discharge Summary Date of Service November 06, 2022 delayed entry Date of service November 03, 2022 Notes For Next Care Provider Please refer to notes below. Medication Changes From Visit ASA and Plavix x at least 6 months Metoprolol tartrate 12.5mg BID Lipitor 40mg daily Lisinopril 2.5mg PO daily Admission HPI Per Admitting Provider History obtained from patient and records. Medical history significant for hyperlipidemia, GERD, psoriatic arthritis ongoing steroid taper for knee pain, ongoing tobacco abuse. 2 weeks ago, patient noted left-sided chest pain described as heaviness going to the left arm and jaw. Some shortness of breath. Intermittent symptoms. No unusual stress at home. Chest pain similar to episode in 2019 which prompted outpatient stress echo negative for inducible ischemia. More intense discomfort in the last 3 days. Patient took aspirin last night. Consulted ER for worsening symptoms. Chest pain improved with nitroglycerin administration at the ER. Medical History as above Surgical History : Current section, fourth toe surgery, rectal surgery, ROBBI/BSO Family History : DM, heart disease Personal/Social history : Half pack daily, no EtOH intake, factory work Admission Exam Per Admitting Provider GENERAL: Comfortable, pleasant, obese, no respiratory distress SKIN: Normal color, warm HEENT: Bespectacled, [place] palpebral conjunctivae, no ptosis, moist buccal mucosa NECK : Supple, short neck, mo tenderness CHEST : CTA, no tenderness HEART : RRR, no obvious murmurs ABDOMEN: Some distention, nontender EXTREMITIES : No LE swelling, minimal knee tenderness, no other conspicuous deformities noted NEUROLOGIC : Coherent, no facial asymmetry, no other gross focality Principal Dx & Hospital Course #1 = Principal Diagnosis (1) NSTEMI (non-ST elevated myocardial infarction): per Cardiology service: Cardiac enzymes consistent with non-ST segment elevation myocardial infarction and echocardiogram reveals localized apical wall motion abnormality Cardiac catheterization demonstrated serial stenoses in the proximal and mid left anterior descending with patient undergoing stent implantation and [facility] with good result. Residual disease of 40 to 50% at the ostial left anterior descending and tight stenosis in the distal posterior descending artery Successful drug-eluting stent implantation multiple serial lesions in the left anterior descending patient stable overall after procedure chest pain free, asymptomatic ASA and Plavix x at least 6 months Metoprolol tartrate 12.5mg BID Lipitor 40mg daily Lisinopril 2.5mg PO daily No smoking Cardiology follow-up 1-2 weeks time Hyperlipidemia --Lipitor started GERD stable on regimen psoriatic arthritis ongoing steroid taper for knee pain ongoing tobacco abuse Disposition d/c home ff up with PCP in 1 week 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 Discharge Exam General- oriented x 3, not in distress, speaks in sentences with no effort or accessory muscle use Eyes- anicteric Neck- no JVD Lungs- clear breath sounds bilaterally, no rales/wheezes Heart- normal rate, regular rhythm; no murmurs Abdomen- normal bowel sounds, nondistended, soft, nontender Extremities- no pretibial edema, no calf tenderness R wrist: no hematoma/bleeding Neuro- alert, oriented x 3; no gross focal neurologic deficits Skin- warm & dry Updated Medication List Medication Instructions Recorded Confirmed Type acetaminophen 325 mg tablet 650 mg PO QID PRN Pain 11/02/22 11/02/22 History (Tylenol) betamethasone dipropionate 0.05 % 1 applic topical BID 11/02/22 11/02/22 History topical ointment folic acid 1 mg tablet 1 mg PO QAM 11/02/22 11/02/22 History hydrocortisone 2.5 % topical cream 1 applic LA BID PRN Hemorrhoids 11/02/22 11/02/22 History with perineal applicator (Proctozone-HC) methotrexate sodium 2.5 mg tablet 15 mg PO .QFRI 11/02/22 11/02/22 History montelukast 10 mg tablet 10 mg PO DAILY PRN Allergy Symptoms 11/02/22 11/02/22 History omeprazole 20 mg capsule,delayed 20 mg PO DAILY PRN Acid Reflux 11/02/22 11/02/22 History release prednisone 5 mg tablet 5 mg PO .TAPER UD 11/02/22 11/02/22 History sucralfate 1 gram tablet 1 g PO ACHS PRN Acid Reflux 11/02/22 11/02/22 History aspirin 81 mg tablet,delayed 81 mg PO QAM 30 days #30 tabs 11/03/22 Rx release atorvastatin 40 mg tablet 40 mg PO QAM 30 days #30 tabs 11/03/22 Rx clopidogrel 75 mg tablet 75 mg PO QAM 30 days #30 tabs 11/03/22 Rx metoprolol tartrate 25 mg tablet 12.5 mg PO BID 30 days #30 tabs 11/03/22 Rx lisinopril 2.5 mg tablet 2.5 mg PO DAILY 30 days #30 tabs 11/06/22 Rx nitroglycerin 0.3 mg sublingual 0.3 mg sublingual UD PRN chest 11/06/22 Rx tablet (Nitrostat) pain #10 tabs Hospital Stay Data Consultations 11/02/22 01:27 ED Decision to Admit Stat 11/02/22 05:33 Consult Cardiology Routine 11/02/22 13:39 Consult Cardiac Rehabilitation Routine Procedures Performed Operation Date: 11/02/22 10:00 Actual Procedures p Cineradiography w/Routine Exam - Josias Monzon MD p Cath, Left with Cors and Vent - Josias Monzon MD Operation Date: 11/02/22 11:30 Actual Procedures p Drug Eluting Stent SGl Vessel - Trevon Elliott MD s IVUS Coronary Single Vessel - Trevon Elliott MD s POBA SGL Vessel - MD yamile Saul Placement Art Occlusive Device - MD yamile Saul Ultrasound Vascular Access - Trevon Elliott MD Diagnostic Imagining Performed 11/02/22 00:17 CT angio chest PE protocol Urgent CLINICAL HISTORY: Chest pain, elevated troponin, r/o PE COMPARISON STUDY: Chest radiographs April 27, 2017 and November 01, 2022. TECHNIQUE: Following IV administration of 100 mL of Optiray, helical axial images of the chest were obtained utilizing the pulmonary embolus protocol. Maximal intensity projections and sagittal and coronal reformats were viewed on an independent 3D workstation. IV contrast was administered without complication. Automated exposure control was utilized for the study. A dose lowering technique was utilized adhering to the principles of ALARA. CT DOSE: 573.13 mGy.cm FINDINGS: No pulmonary emboli are identified. Mild cardiomegaly is noted. There is moderate to extensive coronary artery calcification. No pericardial effusion is present. There is no thoracic aortic dissection. No enlarged thoracic lymph nodes are present. No pneumothorax or pleural effusion is noted. Groundglass opacities are noted with mosaic attenuation. No acute fracture within the visualized bony thorax is noted. There is hepatic steatosis. IMPRESSION: 1. No pulmonary emboli identified. 2. Mild cardiomegaly. Moderate to extensive coronary artery calcification. 3. Ground glass opacities with mosaic attenuation within the lungs. This may reflect air trapping. ACT 112: Negative or not required by law. 11/02/22 09:43 CL Cath Imgs for PACS use only Stat 11/02/22 13:35 CL IVUS Coronary Single Vessel Routine Discharge Instructions Given to Patient (Per Discharging Provider) PLEASE REFER TO YOUR NEW MEDICATION LIST AND FOLLOW INSTRUCTIONS CAREFULLY. YOUR NEW MEDICATIONS INCLUDE: ASPIRIN, PLAVIX- to prevent heart attack, stent occlusion very important to take these medications every single day METOPROLOL ATORVASTATIN PLEASE CALL YOUR PRIMARY CARE PHYSICIAN OR RETURN TO THE ER IF WITH WORSENING OF SYMPTOMS, INCLUDING CHEST PAIN, SHORTNESS OF BREATH, PALPITATIONS, DIZZINESS, ETC FOLLOW UP WITH PRIMARY CARE PHYSICIAN IN 1 WEEK. FOLLOW UP WITH CAN DRAGGER DR. MONZON IN 2 WEEKS. Total Time Total Time Spent Total Time Spent (In Minutes): > 30 minutes
== END 2022-11-03 12:02 | disposition home or self-care (01) | DRG 246 ==
LOC: ED 21:38 → 2S 11-02 03:41

== ENCOUNTER 2022-11-17 15:17 | Observation (INO) ==
--- NOTE | 2022-11-17 15:42 | Emergency Department Note ---
Impression & Plan Atypical chest pain, Breathlessness, Bronchitis ED Provider Note Provider: Nigel Raymundo MD DATE OF SERVICE: 11/17/2022 CHIEF COMPLAINT: Shortness of breath, chest pressure, right jaw pain HISTORY OF PRESENT ILLNESS: Patient is a 52-year-old female history of smoking, psoriatic arthritis, and recently quit after being admitted for chest pain and receiving cardiac stents here at the beginning of the month. Patient states that shortly after discharge began to clear and some chest pressure and shortness of breath and was diagnosed with the flu. This was last week and she had some fevers. Fevers have resolved but she still feeling unwell and having significant shortness of breath. Denies leg swelling. Reports some pressure across her chest at times. Today increased pressure as well as some pain in the right abdominal region and neck. Denies any abdominal pain or nausea or vo miting. Denies numbness or tingling or pain in the extremities. No trauma or fainting reported. Nonproductive cough. Quit smoking and has not smoked since before last admission. Patient states she is swallowing okay. Has been eating and drinking okay. 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 REVIEW OF SYSTEMS: A total of 10 review of systems was obtained and negative except as stated above in the HPI. PAST MEDICAL HISTORY: As noted above MEDICATIONS: Reviewed home medications and the patient states compliance with these. SOCIAL HISTORY: Recently quit smoking PHYSICAL EXAM: GENERAL: alert and oriented laying on the stretcher. Head: normocephalic and atraumatic. No significant jawline tenderness. EYES: No injection, discharge or icterus. NECK: Trachea midline. Supple without crepitus. ENT: Mucous membranes pink and moist. Pharynx without erythema or exudate. LUNGS: Airway patent. No retractions. Breath sounds clear with good air entry bilaterally. HEART: Regular rate and rhythm. No chest wall tenderness ABDOMEN: Soft and non-tender, without guarding or rebound. SKIN: Acyanotic, warm, dry, without rashes EXTREMITIES: Without swelling, tenderness or deformity NEUROLOGICAL: No focal deficits. No aphasia. No facial droop or slurred speech. EK bpm sinus bradycardia. No PVC or PAC. No acute ST segment elevation or depression with a QTC of 370. CONTINUOUS CARDIAC MONITORING: was ordered and showed a heart rate of 50s-60s bpm in normal sinus rhythm to sinus bradycardia Patient's laboratory studies and imaging reviewed. Differential includes Reactive airway disease, pneumonia, pneumothorax, COPD, CHF, infections, cardiac ischemia, pulmonary embolism, musculoskeletal, gastrointestinal, as well as other pathologies. IMPRESSION/MEDICAL DECISION MAKING: Patient states this does not feel similar to last presentation. Started feel unwell shortly after discharge and did test positive for flu. Reports more shortness of breath with some chest pressure some radiation of the jaw. States she tried some nitro at home and it did not help. Having abdominal symptoms. EKG without acute STEMI findings. Again recent cardiac catheterization and records reviewed. Has been compliant with her medicines by report. Not hypoxic here. Do question possible alternative etiology but of course working of a cardiac etiology as well. Troponin is pending. We will complete a CT of the chest to exclude all Jonathon findings or PE. Low suspicion for intra-abdominal complications or pancreatitis given her symptoms and again lack of nausea and vomiting. Could be more fluid related still. COVID test sent. Not hypoxic. Better without significant anemia. Leukocytosis of 12.2 was noted although in review of prior blood work this is actually the lowest in the last month. COVID test negative today. High-sensitivity troponin returns today at 5.7 in the normal range compared to elevations when she was here at the beginning of the month. CT without evidence by report of PE with some groundglass consolidation in the right lower lobe for infectious or inflammatory pneumonitis. No evidence of significant liver or pancreatic inflammation based on labs. Normal renal function today. Discussed with the patient. With her significant smoking history we will give a DuoNeb as well as some steroids. Discussed with her and for any atypical pneumonia component of bronchitis/COPD exacerbation given a dose of doxycycline. Given the atypical nontender jaw discomfort that she reports and recent cardiac history discussed with her staying for observation. Hospitalist was contacted. DIAGNOSIS: Shortness of breath, bronchitis, atypical chest pain DISPOSITION: Hospitalist will evaluate Patient was agreeable with this plan. Past Med/Surg History Medical History (Updated 11/17/22 @ 18:00 by Nigel Raymundo M.D.) Arthritis CAD (coronary artery disease) Current every day smoker GERD (gastroesophageal reflux disease) HLD (hyperlipidemia) Surgical History (Updated 11/17/22 @ 17:06 by Radha Arenas PA-C) Hx of abdominal hysterectomy Hx of colonoscopy 2019 Hx of esophagogastroduodenoscopy 2020 Family History Other Diabetes Dyslipidemia Hypertension Social History (Updated 11/17/22 @ 17:07 by Radha Arenas PA-C) Smoking Status: Former smoker Tobacco Type: Cigarettes Age Started Using Tobacco: 22; Age Quit Using Tobacco: 52; packs per day: 1; Second Hand Exposure: No; Hx Alcohol Use: Yes Hx Substance Use: No Preferred Language: Luxembourgish Communication Ability: Effective 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 Beliefs That Will Affect Care: None Current Living Situation: Spouse Feels Safe at Home: Yes Assistive Devices: Glasses Allergies Allergies Allergy/AdvReac Type Severity Reaction Status Date / Time oxycodone AdvReac Intermediate Severe Unverified 11/17/22 15:58 nausea acetaminophen AdvReac Nausea Verified 11/17/22 15:58 [From Darvocet-N] propoxyphene AdvReac Nausea Verified 11/17/22 15:58 [From Darvocet-N] Home Meds Home Medications Medication Instructions Recorded Confirmed acetaminophen 325 mg tablet 650 mg PO QID PRN Pain 11/02/22 11/17/22 (Tylenol) betamethasone dipropionate 0.05 % 1 applic topical BID PRN .flare up 11/02/22 11/17/22 topical ointment folic acid 1 mg tablet 1 mg PO QAM 11/02/22 11/17/22 hydrocortisone 2.5 % topical cream 1 applic [place] BID PRN Hemorrhoids 11/02/22 11/17/22 with perineal applicator (Proctozone-HC) methotrexate sodium 2.5 mg tablet 15 mg PO .QFRI 11/02/22 11/17/22 montelukast 10 mg tablet 10 mg PO DAILY PRN Allergy Symptoms 11/02/22 11/17/22 Previous Rx's Medication Instructions Recorded aspirin 81 mg tablet,delayed 81 mg PO QAM 30 days #30 tabs 11/03/22 release atorvastatin 40 mg tablet 40 mg PO QAM 30 days #30 tabs 11/03/22 clopidogrel 75 mg tablet 75 mg PO QAM 30 days #30 tabs 11/03/22 metoprolol tartrate 25 mg tablet 12.5 mg PO BID 30 days #30 tabs 11/03/22 lisinopril 2.5 mg tablet 2.5 mg PO DAILY 30 days #30 tabs 11/06/22 nitroglycerin 0.3 mg sublingual 0.3 mg sublingual UD PRN chest 11/06/22 tablet (Nitrostat) pain #10 tabs Results & Data (ED) Vital Signs Vital Signs - 24 hr 11/17/22 15:17 11/17/22 15:21 11/17/22 16:10 Temperature 36.9 C Temperature Source Temporal Artery Scan Pulse Rate 67 62 57 L Pulse Rate from SpO2 Sensor 57 L Respiratory Rate 16 20 19 Blood Pressure 164/95 H 128/84 Blood Pressure Mean 118 98 Pulse Oximetry 98 97 96 Oxygen Delivery Method Room Air Room Air Room Air Sepsis Recent Fever Within 48 Hours No Sepsis New/Unexplained Change in Mental Status N/A Sepsis Action Taken by Nursing No Action Required 11/17/22 16:20 11/17/22 16:30 11/17/22 17:00 Temperature Temperature Source Pulse Rate 56 L 57 L 57 L Pulse Rate from SpO2 Sensor 58 L Respiratory Rate 18 18 17 Blood Pressure 120/82 137/86 148/98 H Blood Pressure Mean 94 103 114 Pulse Oximetry 97 95 97 Oxygen Delivery Method Room Air Room Air Room Air Sepsis Recent Fever Within 48 Hours Sepsis New/Unexplained Change in Mental Status Sepsis Action Taken by Nursing 11/17/22 17:30 11/17/22 18:00 Temperature Temperature Source Pulse Rate 54 L 57 L Pulse Rate from SpO2 Sensor 59 L Respiratory Rate 21 19 Blood Pressure 130/87 134/80 Blood Pressure Mean 101 98 Pulse Oximetry 95 97 Oxygen Delivery Method Room Air Room Air Sepsis Recent Fever Within 48 Hours Sepsis New/Unexplained Change in Mental Status Sepsis Action Taken by Nursing Laboratory Data Result diagrams: 11/17/22 15:25 11/17/22 15:25 Lab Results 11/17/22 11/17/22 11/17/22 Range/Units 15:25 15:25 15:25 WBC 12.23 H (4.8-10.8) K/ul RBC 4.52 (3.93-5.22) M/uL Hgb 14.1 (12.0-16.0) g/dl POC Hgb (12.0-16.0) g/dl Hct 41.5 (34.1-44.9) % POC Hct (37-47) % MCV 91.8 (80.0-100.0) fL MCH 31.2 (25.0-34.0) pg MCHC 34.0 (32.0-36.0) g/dL RDW Std Deviation 45.1 (36.4-46.3) fL RDW Coeff of Aydin 13.6 (11.5-14.5) % Plt Count 289 (130-400) K/uL MPV 11.5 (9.4-12.3) fL Immature Gran % (Auto) 1.6 % Neut % (Auto) 67.6 % Lymph % (Auto) 21.4 % Fajardo % (Auto) 7.8 % Eos % (Auto) 0.9 % Baso % (Auto) 0.7 % Neut # (Auto) 8.28 H (1.4-6.5) K/uL Lymph # (Auto) 2.62 (1.2-3.4) K/uL Fajardo # (Auto) 0.95 H (0.24-0.82) K/uL Eos # (Auto) 0.11 (0-0.50) K/uL Baso # (Auto) 0.08 (0-0.2) K/uL Immature Gran # (Auto) 0.19 H (0.00-0.02) K/uL PT 11.3 (9.0-12.0) Seconds INR 1.1 (0.9-1.1) APTT 25.2 (21.0-31.0) Seconds PTT Ratio 0.9 POC Sodium (135-144) mmol/L Sodium 141 (136-145) mmol/L POC Potassium (3.3-5.0) mmol/L Potassium 4.2 (3.5-5.1) mmol/L POC Chloride (101-112) mmol/L Chloride 105 (98-107) mmol/L Carbon Dioxide 29 (21-32) mmol/L POC Total CO2 (24-31) mmol/L Anion Gap 7 (3-11) POC Anion Gap (16-25) mmol/L POC BUN (7-18) mg/dl BUN 13 (6-23) mg/dl Creatinine 0.79 (0.6-1.2) mg/dl POC Creatinine (0.6-1.3) mg/dl Est Cr Clr Drug Dosing Not Reportable Est GFR ( Amer) 99.1 ml/min Est GFR (Non-Af Amer) 85.5 ml/min BUN/Creatinine Ratio 16.5 (10-20) Glucose 81 (70-99(Fasting)) mg/dl POC Glucose (other) (70-99) mg/dl Calcium 9.2 (8.5-10.1) mg/dl POC Ioniz Calcium Marshall (1.12-1.32) mmol/l Total Bilirubin 0.4 (0.2-1.0) mg/dl AST 14 (13-39) U/L ALT 23 (7-52) U/L Alkaline Phosphatase 84 (34-104) U/L Troponin I High Sens 5.7 (0-14) pg/ml Total Protein 7.2 (6.0-8.3) gm/dl Albumin 4.2 (3.4-5.0) gm/dl Globulin 3.0 (2.5-4.0) gm/dl Albumin/Globulin Ratio 1.4 (0.9-2) Lipase 28 (11-82) U/L Procalcitonin (0-0.5) ng/ml SARS-CoV-2, RNA, NAAT (NEGATIVE) 11/17/22 11/17/22 11/17/22 Range/Units 15:25 15:31 15:40 WBC (4.8-10.8) K/ul RBC (3.93-5.22) M/uL Hgb (12.0-16.0) g/dl POC Hgb 14.3 (12.0-16.0) g/dl Hct (34.1-44.9) % POC Hct 42 (37-47) % MCV (80.0-100.0) fL MCH (25.0-34.0) pg MCHC (32.0-36.0) g/dL RDW Std Deviation (36.4-46.3) fL RDW Coeff of Aydin (11.5-14.5) % Plt Count (130-400) K/uL MPV (9.4-12.3) fL Immature Gran % (Auto) % Neut % (Auto) % Lymph % (Auto) % Fajardo % (Auto) % Eos % (Auto) % Baso % (Auto) % Neut # (Auto) (1.4-6.5) K/uL Lymph # (Auto) (1.2-3.4) K/uL Fajardo # (Auto) (0.24-0.82) K/uL Eos # (Auto) (0-0.50) K/uL Baso # (Auto) (0-0.2) K/uL Immature Gran # (Auto) (0.00-0.02) K/uL PT (9.0-12.0) Seconds INR (0.9-1.1) APTT (21.0-31.0) Seconds PTT Ratio POC Sodium 141 (135-144) mmol/L Sodium (136-145) mmol/L POC Potassium 4.1 (3.3-5.0) mmol/L Potassium (3.5-5.1) mmol/L POC Chloride 104 (101-112) mmol/L Chloride (98-107) mmol/L Carbon Dioxide (21-32) mmol/L POC Total CO2 27 (24-31) mmol/L Anion Gap (3-11) POC Anion Gap 15.0 L (16-25) mmol/L POC BUN 12 (7-18) mg/dl BUN (6-23) mg/dl Creatinine (0.6-1.2) mg/dl POC Creatinine 0.8 (0.6-1.3) mg/dl Est Cr Clr Drug Dosing Est GFR ( Amer) ml/min Est GFR (Non-Af Amer) ml/min BUN/Creatinine Ratio (10-20) Glucose (70-99(Fasting)) mg/dl POC Glucose (other) 82 (70-99) mg/dl Calcium (8.5-10.1) mg/dl POC Ioniz Calcium Marshall 1.21 (1.12-1.32) mmol/l Total Bilirubin (0.2-1.0) mg/dl AST (13-39) U/L ALT (7-52) U/L Alkaline Phosphatase (34-104) U/L Troponin I High Sens (0-14) pg/ml Total Protein (6.0-8.3) gm/dl Albumin (3.4-5.0) gm/dl Globulin (2.5-4.0) gm/dl Albumin/Globulin Ratio (0.9-2) Lipase (11-82) U/L Procalcitonin < 0.05 (0-0.5) ng/ml SARS-CoV-2, RNA, NAAT NEGATIVE (NEGATIVE) Administered Medications Discontinued Medications Aspirin (Aspirin 81 Mg Chew) 243 mg PO NOW STA Stop: 11/17/22 16:44 Last Admin: 11/17/22 16:47 Dose: 243 mg Documented By: QGV Doxycycline Hyclate (Doxycycline Hyclate 100 Mg Cap) 100 mg PO NOW STA Stop: 11/17/22 17:02 Last Admin: 11/17/22 17:41 Dose: 100 mg Documented By: QGV Ioversol (Optiray 320 500ml) 110 ml IV ONCE ONE Stop: 11/17/22 15:54 Last Admin: 11/17/22 15:56 Dose: 110 ml Documented By: SALUD Methylprednisolone (Methylprednisolone 40 Mg/Ml Vial) 40 mg IV NOW STA Stop: 11/17/22 16:31 Last Admin: 11/17/22 16:47 Dose: 40 mg Documented By: QGV Imaging Data Radiologist's Impression: Chest X-Ray 11/17/22 15:21 XR chest 1V portable HISTORY: Atypical Chest pain, nonspecific COMPARISON: Chest 11/01/2022 FINDINGS: The lungs are clear. Cardiac silhouette is normal in size. No pleural effusions. No pneumothorax. IMPRESSION: No acute process. ACT 112: Negative or not required by law. Electronically signed by: Urbano England M.D. 11/17/2022 3:54 PM Chest CTA 11/17/22 15:33 CT ANGIOGRAM OF THE CHEST CLINICAL HISTORY: Dyspnea. Chest pressure. COMPARISON STUDY: Chest CT dated 11/02/2022. TECHNIQUE: Following the IV administration of 110 cc of Optiray 320, CT angiogram of the chest was performed from the upper abdomen to the thoracic inlet utilizing the pulmonary embolus protocol. Images are reviewed in the axial, sagittal, and coronal planes. 3-D MIPS images are created and assessed. IV contrast was administered without complication. A dose lowering technique was utilized adhering to the principles of ALARA. CT DOSE: 576.15 mGy.cm FINDINGS: Thyroid: Imaged portions of the thyroid gland are normal in size and attenuation. Thoracic aorta: There is moderate atherosclerotic calcification of the thoracic aorta, which is normal in caliber and demonstrates standard 3-vessel arch anatomy. No dissection is seen. Pulmonary vasculature: The pulmonary trunk is normal in caliber. There are no filling defects identified in main, lobar, or segmental pulmonary branches to suggest pulmonary embolus. Heart: The heart is mildly enlarged and without pericardial effusion. The coronary arteries are densely calcified. Lungs and pleural spaces: Emphysematous change is noted. There is mild patchy airspace consolidation throughout the right lower lobe. Dependent atelectasis is seen bilaterally. There is no pleural effusion. The trachea and central airways appear clear. A 4 mm pleural-based nodule in the right lower lobe along the major fissure seen on image #131 is unchanged, as is a 3 mm left lower lobe pleural-based nodule along the major fissure seen on image #157 and a 3 mm left lower lobe nodule on image #141. Mediastinum: There is no mediastinal lymphadenopathy. Jocelyn: Clear. Axillae: There is no axillary lymphadenopathy. Upper abdomen: The liver appears steatotic. Partially visualized upper abdominal viscera is otherwise within normal limits. Skeletal structures: The skeletal structures are osteopenic. Mild degenerative change is noted throughout the thoracic spine. No lytic or blastic bony lesions are seen. IMPRESSION: 1 There is no evidence of pulmonary embolus in the main, lobar, or segmental pulmonary arteries. 2. Mild patchy ground glass consolidation in the right lower lobe is typical for an infectious/inflammatory pneumonitis. Clinical correlation will be required. 3. Emphysema and mild cardiomegaly. 4. Advanced coronary artery calcification. 5. Pulmonary and pleural-based nodules measuring up to 4 mm are unchanged from 11/02/2022. If clinically warranted these can be followed as per the Fleischner criteria. See below. 6. Additional findings as above. Please refer to below summary of Fleischner criteria recommendations for follow- up of incidental CT nodules (Jelena Chung, Guidelines for management of small pulmonary nodules detected on CT scans: A statement from the Fleischner Society, Radiology 237: [phone].) SOLID NODULES Solitary nodule size: <6 mm * low risk patients: no follow-up needed * high risk patients: optional CT at 12 months Solitary nodule size: 6-8 mm * low risk patients: follow-up at 6-12 months, then consider further follow-up at 18-24 months * high risk patients: initial follow-up CT at 6-12 months and then at 18-24 months if no change Solitary nodule size: >8 mm * either low or high risk patients - consider follow-up CT at 3 months, and/or CT-PET, and/or biopsy Multiple nodules size: <6 mm * low risk patients: no routine follow-up * high risk patients: optional CT at 12 months Multiple nodules size: 6-8 mm * low risk patients: follow-up at 3-6 months, then consider further follow-up at 18-24 months * high risk patients: follow-up at 3-6 months, then at 18-24 months if no change Multiple nodules size: >8 mm * low risk patients: follow-up at 3-6 months, then consider further follow-up at 18-24 months * high risk patients: follow-up at 3-6 months, then at 18-24 months if no change Note: newly detected indeterminate nodule in persons 35 years of age or older. * low risk patients: minimal or absent history of smoking and/or other known risk factors * high risk patients: history of smoking or of other known risk factors (e.g. first degree relative with lung cancer, or exposure to asbestos, radon, uranium) * if a nodule up to 8 mm is partly solid or is ground glass further follow-up is required after 24 months to exclude possible slow growing adenocarcinoma (ANEL) SUBSOLID NODULES Solitary pure ground-glass nodule * nodule size <6 mm - no CT follow-up required * nodule size >=6 mm - follow-up CT at 6-12 months, then every 2 years until 5 years Solitary part-solid nodule * nodule size <6 mm - no CT follow-up required * nodule size >=6 mm - follow-up CT at 3-6 months. If unchanged, and solid component remains <6 mm, then annual follow-up for 5 years Multiple subsolid nodules * nodule size <6 mm - follow-up CT at 3-6 months, consider further follow-up at 2 and 4 years if stable * nodule size >=6 mm - follow-up CT at 3-6 months, subsequent management based on the most suspicious nodule(s) ACT 112: Negative or not required by law. Electronically signed by: Fabian Tran M.D. 11/17/2022 4:20 PM Discharge Plan Visit Data Chief Complaint: Chest Pain Stated Complaint: CHEST PAIN, SOB ED Provider: Nigel Raymundo Discharge Problem: Atypical chest pain, Breathlessness, Bronchitis Patient Disposition: Being Evaluated by Hospitalist Forms Stand Alone Forms: My [facility] Prescriptions Prescriptions: No Action acetaminophen [Tylenol] 325 mg Tablet 650 mg PO QID PRN (Reason: Pain) hydrocortisone [Proctozone-HC] 2.5 % cream with perineal applicator 1 applic [place] BID PRN (Reason: Hemorrhoids) methotrexate sodium 2.5 mg tablet 15 mg PO .QFRI folic acid 1 mg tablet 1 mg PO QAM montelukast 10 mg Tablet 10 mg PO DAILY PRN (Reason: Allergy Symptoms) betamethasone dipropionate 0.05 % ointment 1 applic TOPICAL BID PRN (Reason: .flare up) Rx Instructions: APPLY TO LEFT ARM. atorvastatin 40 mg Tablet 40 mg PO QAM 30 Days Qty: 30 2RF clopidogrel 75 mg Tablet 75 mg PO QAM 30 Days Qty: 30 2RF aspirin 81 mg Tablet,Delayed Release (Dr/Ec) 81 mg PO QAM 30 Days Qty: 30 2RF metoprolol tartrate 25 mg Tablet 12.5 mg PO BID 30 Days Qty: 30 2RF lisinopril 2.5 mg tablet 2.5 mg PO DAILY 30 Days Qty: 30 0RF nitroglycerin [Nitrostat] 0.3 mg tablet, sublingual 0.3 mg sublingual UD PRN (Reason: chest pain) Qty: 10 0RF Rx Instructions: place 1 tab under the tongue as needed for chest pain, if pain unrelieved or worsens 3-5 minutes after, call 911 Referrals Referrals: Dorene Viera MD [Primary Care Provider] -
[2022-11-17 15:43] LABS: iSTAT Creatinine 0.8 mg/dl (0.6-1.3); iSTAT Hemoglobin 14.3 g/dl (12.0-16.0); iSTAT Ionized Calcium 1.21 mmol/l (1.12-1.32); iSTAT Potassium 4.1 mmol/L (3.3-5.0)
[2022-11-17 15:45] LABS: Basophils # (auto) 0.08 K/uL (0-0.2); Basophils % (auto) 0.7 %; Eosinophils # (auto) 0.11 K/uL (0-0.50); Eosinophils % (auto) 0.9 %; Hematocrit (blood only) 41.5 % (34.1-44.9); Hemoglobin 14.1 g/dl (12.0-16.0); Immature Granulocytes # (auto) 0.19 K/uL (0.00-0.02); Immature Granulocytes % (auto) 1.6 %; Lymphocytes # (auto) 2.62 K/uL (1.2-3.4); Lymphocytes % (auto) 21.4 %; Mean Corpuscular Hemoglobin 31.2 pg (25.0-34.0); Mean Corpuscular Volume 91.8 fL (80.0-100.0); Mean Platelet Volume 11.5 fL (9.4-12.3); Monocytes # (auto) 0.95 K/uL (0.24-0.82); Monocytes % (auto) 7.8 %; Neutrophils # (auto) 8.28 K/uL (1.4-6.5); Neutrophils % (auto) 67.6 %; Platelet Count 289 K/uL (130-400); RDW Coefficient of Variation 13.6 % (11.5-14.5); RDW Standard Deviation 45.1 fL (36.4-46.3); Red Blood Count 4.52 M/uL (3.93-5.22); White Blood Count 12.23 K/ul (4.8-10.8)
[2022-11-17] MEDS ORDERED: OPTIRAY 320 500ml IV ONE (15:53)
--- NOTE | 2022-11-17 15:56 | XRay Report ---
XR chest 1V portable HISTORY: Atypical Chest pain, nonspecific COMPARISON: Chest 11/01/2022 FINDINGS: The lungs are clear. Cardiac silhouette is normal in size. No pleural effusions. No pneumot horax. IMPRESSION: No acute process. ACT 112: Negative or not required by law. Electronically signed by: Urbano England M.D. 11/17/2022 3:54 PM
[2022-11-17 16:03] LABS: INR 1.1 (0.9-1.1); Partial Thromboplastin Ratio 0.9; Partial Thromboplastin Time 25.2 Seconds (21.0-31.0); Prothrombin Time 11.3 Seconds (9.0-12.0)
[2022-11-17 16:13] LABS: Troponin I High Sensitivity 5.7 pg/ml (0-14)
[2022-11-17 16:20] LABS: Alanine Aminotransferase 23 U/L (7-52); Albumin Globulin Ratio 1.4 (0.9-2); Albumin Level 4.2 gm/dl (3.4-5.0); Alkaline Phosphatase 84 U/L (34-104); Anion Gap 7 (3-11); Aspartate Aminotransferase 14 U/L (13-39); BUN Creatinine Ratio 16.5 (10-20); Bilirubin,Total 0.4 mg/dl (0.2-1.0); Blood Urea Nitrogen 13 mg/dl (6-23); Calcium 9.2 mg/dl (8.5-10.1); Carbon Dioxide 29 mmol/L (21-32); Chloride 105 mmol/L (98-107); Est GFR (African American) 99.1 ml/min; Est GFR (Non-African American) 85.5 ml/min; Glucose 81 mg/dl (70-99(Fasting)); Lipase 28 U/L (11-82); Potassium 4.2 mmol/L (3.5-5.1); Sodium 141 mmol/L (136-145); Total Protein 7.2 gm/dl (6.0-8.3)
--- NOTE | 2022-11-17 16:22 | CT Scan Report ---
CT ANGIOGRAM OF THE CHEST CLINICAL HISTORY: Dyspnea. Chest pressure. COMPARISON STUDY: Chest CT dated 11/02/2022. TECHNIQUE: Following the IV administration of 110 cc of Optiray 320, CT angiogram of the chest was pe rformed from the upper abdomen to the thoracic inlet utilizing the pulmonary embolus protocol. Images are reviewed in the axial, sagittal, and coronal planes. 3-D MIPS images are created and assessed. I V contrast was administered without complication. A dose lowering technique was utilized adhering to the principles of ALARA. CT DOSE: 576.15 mGy.cm FINDINGS: Thyroid: Imaged portions of the thyroid gland are normal in size and attenuation. Thoracic aorta: There is moderate atherosclerotic calcification of the thoracic aorta, which is jasson l in caliber and demonstrates standard 3-vessel arch anatomy. No dissection is seen. Pulmonary vasculature: The pulmonary trunk is normal in caliber. There are no filling defects identif ied in main, lobar, or segmental pulmonary branches to suggest pulmonary embolus. Heart: The heart is mildly enlarged and without pericardial effusion. The coronary arteries are dense ly calcified. Lungs and pleural spaces: Emphysematous change is noted. There is mild patchy airspace consolidation throughout the right lower lobe. Dependent atelectasis is seen bilaterally. There is no pleural effus ion. The trachea and central airways appear clear. A 4 mm pleural-based nodule in the right lower lob e along the major fissure seen on image #131 is unchanged, as is a 3 mm left lower lobe pleural-based nodule along the major fissure seen on image #157 and a 3 mm left lower lobe nodule on image #141. Mediastinum: There is no mediastinal lymphadenopathy. Jocelyn: Clear. Axillae: There is no axillary lymphadenopathy. Upper abdomen: The liver appears steatotic. Partially visualized upper abdominal viscera is otherwise within normal limits. Skeletal structures: The skeletal structures are osteopenic. Mild degenerative change is noted throug hout the thoracic spine. No lytic or blastic bony lesions are seen. IMPRESSION: 1 There is no evidence of pulmonary embolus in the main, lobar, or segmental pulmonary arteries. 2. Mild patchy ground glass consolidation in the right lower lobe is typical for an infectious/inflam matory pneumonitis. Clinical correlation will be required. 3. Emphysema and mild cardiomegaly. 4. Advanced coronary artery calcification. 5. Pulmonary and pleural-based nodules measuring up to 4 mm are unchanged from 11/02/2022. If clinical ly warranted these can be followed as per the Fleischner criteria. See below. 6. Additional findings as above. Please refer to below summary of Fleischner criteria recommendations for follow-up of incidental CT n odules (Jelena Chung, Guidelines for management of small pulmonary nodules detected on CT scans: A mackenzie woodall from the Fleischner Society, Radiology 237: [phone].) SOLID NODULES Solitary nodule size: <6 mm * low risk patients: no follow-up needed * high risk patients: optional CT at 12 months Solitary nodule size: 6-8 mm * low risk patients: follow-up at 6-12 months, then consider further follow-up at 18-24 months * high risk patients: initial follow-up CT at 6-12 months and then at 18-24 months if no change Solitary nodule size: >8 mm * either low or high risk patients - consider follow-up CT at 3 months, and/or CT-PET, and/or biopsy Multiple nodules size: <6 mm * low risk patients: no routine follow-up * high risk patients: optional CT at 12 months Multiple nodules size: 6-8 mm * low risk patients: follow-up at 3-6 months, then consider further follow-up at 18-24 months * high risk patients: follow-up at 3-6 months, then at 18-24 months if no change Multiple nodules size: >8 mm * low risk patients: follow-up at 3-6 months, then consider further follow-up at 18-24 months * high risk patients: follow-up at 3-6 months, then at 18-24 months if no change Note: newly detected indeterminate nodule in persons 35 years of age or older. * low risk patients: minimal or absent history of smoking and/or other known risk factors * high risk patients: history of smoking or of other known risk factors (e.g. first degree relative with lung cancer, or exposure to asbestos, radon, uranium) * if a nodule up to 8 mm is partly solid or is ground glass further follow-up is required after 24 m onths to exclude possible slow growing adenocarcinoma (ANEL) SUBSOLID NODULES Solitary pure ground-glass nodule * nodule size <6 mm - no CT follow-up required * nodule size >=6 mm - follow-up CT at 6-12 months, then every 2 years until 5 years Solitary part-solid nodule * nodule size <6 mm - no CT follow-up required * nodule size >=6 mm - follow-up CT at 3-6 months. If unchanged, and solid component remains <6 mm, then annual follow-up for 5 years Multiple subsolid nodules * nodule size <6 mm - follow-up CT at 3-6 months, consider further follow-up at 2 and 4 years if sta ble * nodule size >=6 mm - follow-up CT at 3-6 months, subsequent management based on the most suspiciou s nodule(s) ACT 112: Negative or not required by law. Electronically signed by: Fabian Tran M.D. 11/17/2022 4:20 PM
[2022-11-17] MEDS ORDERED: ASPIRIN 81 MG CHEW PO STA (16:43)
[2022-11-17] MEDS ORDERED: DOXYCYCLINE HYCLATE 100 MG CAP PO STA (17:01)
--- NOTE | 2022-11-17 17:01 | History & Physical Report ---
Date of Service November 17, 2022 Assessment & Plan (1) Atypical chest pain: (2) CAD (coronary artery disease): (3) HLD (hyperlipidemia): Plan: - Admit to tele for observation for r/o - Trend cardiac biomarkers, initial set was negative at 5.7 - EKG reviewed as above without suspicion for ACS - Check 2 D echo -Consult cardiology with recent stent placement, maintain current medication management with baby aspirin, Plavix, metoprolol, atorvastatin. Stop lisinopril secondary to dry cough as possibly could be contributing, more likely bronchitis type picture status post having influenza last week. - PT/OT consulted (4) Emphysema of lung: Plan: -New finding on CT of the chest, patient quit smoking earlier this month after [id number] history, continued cessation encouraged -Neg for PE -Questionable pneumonitis versus infectious process, more likely pneumonitis as she does not have other infectious symptoms, afebrile, no leukocytosis, and recently completed course of Tamiflu for influenza A -Received solumedrol 40 mg IV in the ER. No further steroids at this time -Checking procalcitonin, started on doxycycline and ceftriaxone and if negative Pro-Ethan and no further symptoms will plan to discontinue antibiotics. -Will require formal PFT testing as outpatient DVT PPx: - teds, scds continue dual antiplatelet therapy CODE: Full code Dispo: From home, likely to remain in the hospital x 1-2 days History of Present Illness Primary Care Provider: Dorene Viera MD This is a 52-year-old female with PMHx of psoriatic artritis on methotrexate, GERD, obesity, HLD, anxiety presents to the hospital with shortness of breath, chest pain and right sided jaw pain. She was recently hospitalized here at [facility] from 11/02-11/06 for CAD where she underwent placement of multiple drug eluting cardiac stents in the LAD. At that time she was placed on dual antiplatelet therapy with aspirin and Plavix along with lisinopril, metoprolol, and atorvastatin. She also recently stopped smoking with the development of these cardiac issues. Prior to this she smoked for 30 years, 1 pack/day. Patient leblanc called PCP and cardiology today because she felt "something is just not right", and Dr. Monzon referred her to the hospital due to her symptoms. Earlier today she trialed one nitroglycerine tablet because of the chest heaviness and right sided jaw/teeth pain, but it did not improve her symptoms. Patient is unable to determine if the chest heaviness and right sided jaw/teeth pain is worse recently but felt that nothing has been "normal" since having stents placed. Shortly after hospital stay earlier this month, she noticed dry cough development which has not improved, intermittent lightheadedness/dizziness whenever she is both sitting at rest and when ambulating. Last week she was influenza A positive and completed a course of Tamiflu. At home she has been taking all her medications as scheduled. Pt uses prednisone taper for psoriasis flares but hasn't needed it recently. Her , José, is sitting at bedside with her. Allergies Allergy/AdvReac Type Severity Reaction Status Date / Time oxycodone AdvReac Intermediate Severe Unverified 11/17/22 15:58 nausea acetaminophen AdvReac Nausea Verified 11/17/22 15:58 [From Darvocet-N] propoxyphene AdvReac Nausea Verified 11/17/22 15:58 [From Darvocet-N] Home Medications Medication Instructions Recorded Confirmed Type acetaminophen 325 mg tablet 650 mg PO QID PRN Pain 11/02/22 11/17/22 History (Tylenol) betamethasone dipropionate 0.05 % 1 applic topical BID PRN .flare up 11/02/22 11/17/22 History topical ointment folic acid 1 mg tablet 1 mg PO QAM 11/02/22 11/17/22 History hydrocortisone 2.5 % topical cream 1 applic DC BID PRN Hemorrhoids 11/02/22 11/17/22 History with perineal applicator (Proctozone-HC) methotrexate sodium 2.5 mg tablet 15 mg PO .QFRI 11/02/22 11/17/22 History montelukast 10 mg tablet 10 mg PO DAILY PRN Allergy Symptoms 11/02/22 11/17/22 History aspirin 81 mg tablet,delayed 81 mg PO QAM 30 days #30 tabs 11/03/22 11/17/22 Rx release atorvastatin 40 mg tablet 40 mg PO QAM 30 days #30 tabs 11/03/22 11/17/22 Rx clopidogrel 75 mg tablet 75 mg PO QAM 30 days #30 tabs 11/03/22 11/17/22 Rx metoprolol tartrate 25 mg tablet 12.5 mg PO BID 30 days #30 tabs 11/03/22 11/17/22 Rx lisinopril 2.5 mg tablet 2.5 mg PO DAILY 30 days #30 tabs 11/06/22 11/17/22 Rx nitroglycerin 0.3 mg sublingual 0.3 mg sublingual UD PRN chest 11/06/22 11/17/22 Rx tablet (Nitrostat) pain #10 tabs Past Med/Surg History Medical History (Updated 11/17/22 @ 18:00 by Nigel Raymundo M.D.) Arthritis CAD (coronary artery disease) Current every day smoker GERD (gastroesophageal reflux disease) HLD (hyperlipidemia) Surgical History (Updated 11/17/22 @ 17:06 by Radha Arenas PA-C) Hx of abdominal hysterectomy Hx of colonoscopy 2019 Hx of esophagogastroduodenoscopy 2019 Family History Other Diabetes Dyslipidemia Hypertension Social History (Updated 11/17/22 @ 17:07 by Radha Arenas PA-C) Smoking Status: Former smoker Tobacco Type: Cigarettes Age Started Using Tobacco: 22; Age Quit Using Tobacco: 52; packs per day: 1; Second Hand Exposure: No; Hx Alcohol Use: Yes Hx Substance Use: No Preferred Language: Israeli Communication Ability: Effective Furnace Cooler Required: No Beliefs That Will Affect Care: None Current Living Situation: Spouse Feels Safe at Home: Yes Assistive Devices: Glasses Review of Systems Review of Systems: Constitutional: No fever, sweats or chills Eyes: No diplopia, no worsening or blurred vision ENT: normal hearing, no trouble swallowing, + right-sided jaw/teeth pain Respiratory: + Dry cough, no sputum, dyspnea at rest or on exertion Cardiovascular: As per HPI, currently no chest pain, tightness or palpitations Abdomen: No pain, nausea, vomiting, diarrhea or constipation Musculoskeletal: No joint pain, calf pain, swelling Neurologic: No weakness, numbness/tingling, or balance problems Psychiatric: No anxiety or depression Skin: No rash or itch Physical Exam Physical Exam: General: awake, alert, no apparent distress, obese Head: Normocephalic, atraumatic ENT: PERRL, EOMI, no pharyngeal exudate, mucous membranes moist Chest: Clear to auscultation, on room air, no adventitious breath sounds Cardiac: Regular rate and rhythm, no murmur, no JVD, normal peripheral pulses, good capillary refill Abdominal: NABS x 4 quadrants, soft, nondistended, nontender to palpation, no rebound or guarding Extremities: + Clubbing of fingernails, otherwise normal inspection, no peripheral edema or erythema, calfs nontender to palpation Psych: Normal mood and affect Neuro: AAO x 3, strength intact bilaterally and rated 5/5, no motor deficits, speech is clear, no peripheral sensory deficits Results & Data Results & Data ([facility]) Vital Signs (Past 12 Hours) Vital Signs Temp Pulse Resp BP Pulse Ox O2 Del Method 11/17/22 16:20 56 L 18 120/82 97 Room Air 11/17/22 16:10 57 L 19 128/84 96 Room Air 11/17/22 15:21 62 20 97 Room Air 11/17/22 15:17 36.9 C 67 16 164/95 H 98 Room Air Laboratory Results 11/17/22 11/17/22 11/17/22 15:40 15:31 15:25 WBC RBC Hgb POC Hgb 14.3 Hct POC Hct 42 MCV MCH MCHC RDW Std Deviation RDW Coeff of Aydin Plt Count MPV Immature Gran % (Auto) Neut % (Auto) Lymph % (Auto) Keith % (Auto) Eos % (Auto) Baso % (Auto) Neut # (Auto) Lymph # (Auto) Keith # (Auto) Eos # (Auto) Baso # (Auto) Immature Gran # (Auto) PT INR APTT PTT Ratio POC Sodium 141 Sodium 141 POC Potassium 4.1 Potassium 4.2 POC Chloride 104 Chloride 105 Carbon Dioxide 29 POC Total CO2 27 Anion Gap 7 POC Anion Gap 15.0 L POC BUN 12 BUN 13 Creatinine 0.79 POC Creatinine 0.8 Est Cr Clr Drug Dosing Not Reportable Est GFR ( Amer) 99.1 Est GFR (Non-Af Amer) 85.5 BUN/Creatinine Ratio 16.5 Glucose 81 POC Glucose (other) 82 Calcium 9.2 POC Ioniz Calcium Marshall 1.21 Total Bilirubin 0.4 AST 14 ALT 23 Alkaline Phosphatase 84 Troponin I High Sens 5.7 Total Protein 7.2 Albumin 4.2 Globulin 3.0 Albumin/Globulin Ratio 1.4 Lipase 28 SARS-CoV-2, RNA, NAAT NEGATIVE 11/17/22 11/17/22 15:25 15:25 WBC 12.23 H RBC 4.52 Hgb 14.1 POC Hgb Hct 41.5 POC Hct MCV 91.8 MCH 31.2 MCHC 34.0 RDW Std Deviation 45.1 RDW Coeff of Aydin 13.6 Plt Count 289 MPV 11.5 Immature Gran % (Auto) 1.6 Neut % (Auto) 67.6 Lymph % (Auto) 21.4 Keith % (Auto) 7.8 Eos % (Auto) 0.9 Baso % (Auto) 0.7 Neut # (Auto) 8.28 H Lymph # (Auto) 2.62 Keith # (Auto) 0.95 H Eos # (Auto) 0.11 Baso # (Auto) 0.08 Immature Gran # (Auto) 0.19 H PT 11.3 INR 1.1 APTT 25.2 PTT Ratio 0.9 POC Sodium Sodium POC Potassium Potassium POC Chloride Chloride Carbon Dioxide POC Total CO2 Anion Gap POC Anion Gap POC BUN BUN Creatinine POC Creatinine Est Cr Clr Drug Dosing Est GFR ( Amer) Est GFR (Non-Af Amer) BUN/Creatinine Ratio Glucose POC Glucose (other) Calcium POC Ioniz Calcium Marshall Total Bilirubin AST ALT Alkaline Phosphatase Troponin I High Sens Total Protein Albumin Globulin Albumin/Globulin Ratio Lipase SARS-CoV-2, RNA, NAAT Diagnostic Findings Chest X-Ray 11/17/22 15:21 XR chest 1V portable HISTORY: Atypical Chest pain, nonspecific COMPARISON: Chest 11/01/2022 FINDINGS: The lungs are clear. Cardiac silhouette is normal in size. No pleural effusions. No pneumothorax. IMPRESSION: No acute process. ACT 112: Negative or not required by law. Electronically signed by: Urbano England M.D. 11/17/2022 3:54 PM Chest CTA 11/17/22 15:33 CT ANGIOGRAM OF THE CHEST CLINICAL HISTORY: Dyspnea. Chest pressure. COMPARISON STUDY: Chest CT dated 11/02/2022. TECHNIQUE: Following the IV administration of 110 cc of Optiray 320, CT angiogram of the chest was performed from the upper abdomen to the thoracic inlet utilizing the pulmonary embolus protocol. Images are reviewed in the axial, sagittal, and coronal planes. 3-D MIPS images are created and assessed. IV contrast was administered without complication. A dose lowering technique was utilized adhering to the principles of ALARA. CT DOSE: 576.15 mGy.cm FINDINGS: Thyroid: Imaged portions of the thyroid gland are normal in size and atten uation. Thoracic aorta: There is moderate atherosclerotic calcification of the thoracic aorta, which is normal in caliber and demonstrates standard 3-vessel arch anatomy. No dissection is seen. Pulmonary vasculature: The pulmonary trunk is normal in caliber. There are no filling defects identified in main, lobar, or segmental pulmonary branches to suggest pulmonary embolus. Heart: The heart is mildly enlarged and without pericardial effusion. The coronary arteries are densely calcified. Lungs and pleural spaces: Emphysematous change is noted. There is mild patchy airspace consolidation throughout the right lower lobe. Dependent atelectasis is seen bilaterally. There is no pleural effusion. The trachea and central airways appear clear. A 4 mm pleural-based nodule in the right lower lobe along the major fissure seen on image #131 is unchanged, as is a 3 mm left lower lobe pleural-based nodule along the major fissure seen on image #157 and a 3 mm left lower lobe nodule on image #141. Mediastinum: There is no mediastinal lymphadenopathy. Jocelyn: Clear. Axillae: There is no axillary lymphadenopathy. Upper abdomen: The liver appears steatotic. Partially visualized upper abdominal viscera is otherwise within normal limits. Skeletal structures: The skeletal structures are osteopenic. Mild degenerative change is noted throughout the thoracic spine. No lytic or blastic bony lesions are seen. IMPRESSION: 1 There is no evidence of pulmonary embolus in the main, lobar, or segmental pulmonary arteries. 2. Mild patchy ground glass consolidation in the right lower lobe is typical for an infectious/inflammatory pneumonitis. Clinical correlation will be required. 3. Emphysema and mild cardiomegaly. 4. Advanced coronary artery calcification. 5. Pulmonary and pleural-based nodules measuring up to 4 mm are unchanged from 11/02/2022. If clinically warranted these can be followed as per the Fleischner criteria. See below. 6. Additional findings as above. Please refer to below summary of Fleischner criteria recommendations for follow- up of incidental CT nodules (Jelena Chung, Guidelines for management of small pulmonary nodules detected on CT scans: A statement from the Fleischner Society, Radiology 237: [phone].) SOLID NODULES Solitary nodule size: <6 mm * low risk patients: no follow-up needed * high risk patients: optional CT at 12 months Solitary nodule size: 6-8 mm * low risk patients: follow-up at 6-12 months, then consider further follow-up at 18-24 months * high risk patients: initial follow-up CT at 6-12 months and then at 18-24 months if no change Solitary nodule size: >8 mm * either low or high risk patients - consider follow-up CT at 3 months, and/or CT-PET, and/or biopsy Multiple nodules size: <6 mm * low risk patients: no routine follow-up * high risk patients: optional CT at 12 months Multiple nodules size: 6-8 mm * low risk patients: follow-up at 3-6 months, then consider further follow-up at 18-24 months * high risk patients: follow-up at 3-6 months, then at 18-24 months if no change Multiple nodules size: >8 mm * low risk patients: follow-up at 3-6 months, then consider further follow-up at 18-24 months * high risk patients: follow-up at 3-6 months, then at 18-24 months if no change Note: newly detected indeterminate nodule in persons 35 years of age or older. * low risk patients: minimal or absent history of smoking and/or other known risk factors * high risk patients: history of smoking or of other known risk factors (e.g. first degree relative with lung cancer, or exposure to asbestos, radon, uranium) * if a nodule up to 8 mm is partly solid or is ground glass further follow-up is required after 24 months to exclude possible slow growing adenocarcinoma (ANEL) SUBSOLID NODULES Solitary pure ground-glass nodule * nodule size <6 mm - no CT follow-up required * nodule size >=6 mm - follow-up CT at 6-12 months, then every 2 years until 5 years Solitary part-solid nodule * nodule size <6 mm - no CT follow-up required * nodule size >=6 mm - follow-up CT at 3-6 months. If unchanged, and solid component remains <6 mm, then annual follow-up for 5 years Multiple subsolid nodules * nodule size <6 mm - follow-up CT at 3-6 months, consider further follow-up at 2 and 4 years if stable * nodule size >=6 mm - follow-up CT at 3-6 months, subsequent management based on the most suspicious nodule(s) ACT 112: Negative or not required by law. Electronically signed by: Fabian Tran M.D. 11/17/2022 4:20 PM ECG Additional Comments: Reviewed, no ST wave changes, inversions, or signs of ischemia NSR Code Status & VTE Plan Code Status Full code-discussed with the patient at bedside Supervising Physician Co-Signing Physician Notes Pt is a 52 y/o F with hx of CAD s/p stents, psoriasis on MTX, HLD, GERD, migraine admitted for worsening SOB. Pt was dx with Flu recently and completed Tamiflu yesterday. Per pt she has been having intermittent CP, SOB, and exertional dizziness/SOB since the cardiac cath. Also having dry cough since cardiac cath. PE: Obese pt, NAD Lungs: CTA, no wheezing or crackles Cardiac: normal S1/S2, no murmur Abd: Obese abd, ND, NT, soft MSK: no LE edema Psych: AAOX3, normal affect A/P: Chest pain and SOB: -Trop neg --- but due to recent cardiac cath will trend trop -EKG: poor quality, possible T wave flattening/inversion V2-V3 and TWI on V4-V5 --- will obtain AM EKG -Echo sathya -Cardiology consult -admit to tele -CTA Chest: Mild patchy ground glass consolidation in the right lower lobe is typical for an infectious/inflammatory pneumonitis ---- No PE ---- procal is neg ---- no wheezing on lung exam: thus no need for prednisone/steroid ---- if pt is feeling better sathya then discontinue the ceftriaxone -recommend outpt PFT for emphysema eval Other chronic conditions: Plan as above Agree with A/P by Radha Arenas PA-C
[2022-11-17] MEDS ORDERED: cefTRIAXone SODIUM 2000MG/70ML D5W IV STA (18:17)
[2022-11-17] MEDS ORDERED: ONDANSETRON INJ 2 MG/ML 2 ML VIAL IV PRN (19:00)
[2022-11-17] MEDS ORDERED: ACETAMINOPHEN 325 MG TAB PO PRN (19:00)
[2022-11-17] MEDS ORDERED: MONTELUKAST SODIUM 10 MG TABLET PO PRN (19:00)
[2022-11-17] MEDS: ALBUT/IPRATROP 3MG/0.5MG NEB 3 ML VIAL NEB SCH ×2 (19:32→23:14)
[2022-11-17] MEDS: METOPROLOL TARTRATE 25 MG TAB PO SCH (20:54)
[2022-11-18] MEDS: ALBUT/IPRATROP 3MG/0.5MG NEB 3 ML VIAL NEB SCH ×2 (02:02→07:29)
[2022-11-18] MEDS ORDERED: PERFLUTREN LIPID MICROSPHERE (DEFINITY) IV ONE (07:03)
[2022-11-18 07:18] LABS: Hematocrit (blood only) 38.1 % (34.1-44.9); Hemoglobin 12.9 g/dl (12.0-16.0); Mean Corpuscular Hemoglobin 30.9 pg (25.0-34.0); Mean Corpuscular Hgb Conc 33.9 g/dL (32.0-36.0); Mean Corpuscular Volume 91.4 fL (80.0-100.0); Mean Platelet Volume 11.8 fL (9.4-12.3); Platelet Count 282 K/uL (130-400); RDW Coefficient of Variation 13.6 % (11.5-14.5); RDW Standard Deviation 44.9 fL (36.4-46.3); Red Blood Count 4.17 M/uL (3.93-5.22); White Blood Count 14.15 K/ul (4.8-10.8)
[2022-11-18 07:43] LABS: BUN Creatinine Ratio 21.9 (10-20); Calcium 9.1 mg/dl (8.5-10.1); Creatinine Clr Calc Pharmacy 108.8 ml/min; Est GFR (African American) 118.1 ml/min; Est GFR (Non-African American) 101.9 ml/min; Magnesium 2.1 mg/dl (1.7-2.4); Potassium 4.4 mmol/L (3.5-5.1)
[2022-11-18] MEDS ORDERED: CLOPIDOGREL BISULFATE 75 MG TAB PO SCH (09:00)
[2022-11-18] MEDS ORDERED: ASPIRIN 81 MG ECTAB PO SCH (09:00)
[2022-11-18] MEDS ORDERED: FOLIC ACID 1 MG TAB PO SCH (09:00)
[2022-11-18] MEDS ORDERED: ATORVASTATIN 40 MG TAB PO SCH (09:00)
[2022-11-18] MEDS: METOPROLOL TARTRATE 25 MG TAB PO SCH (09:45)
[2022-11-18] MEDS ORDERED: ALBUT/IPRATROP 3MG/0.5MG NEB 3 ML VIAL NEB PRN (10:21)
--- NOTE | 2022-11-18 11:44 | Discharge Summary ---
Date of Service November 18, 2022 Admission HPI Per Admitting Provider This is a 52-year-old female with PMHx of psoriatic artritis on methotrexate, GERD, obesity, HLD, anxiety presents to the hospital with shortness of breath, chest pain and right sided jaw pain. She was recently hospitalized here at [facility] from 11/02-11/06 for CAD where she underwent placement of multiple drug eluting cardiac stents in the [facility]. At that time she was placed on dual antiplatelet therapy with aspirin and Plavix along with lisinopril, metoprolol, and atorvastatin. She also recently stopped smoking with the development of these cardiac issues. Prior to this she smoked for 30 years, 1 pack/day. Patient leblanc called PCP and cardiology today because she felt "something is just not right", and Dr. Monzon referred her to the hospital due to her symptoms. Earlier today she trialed one nitroglycerine tablet because of the chest heaviness and right sided jaw/teeth pain, but it did not improve her symptoms. Patient is unable to determine if the chest heaviness and right sided jaw/teeth pain is worse recently but felt that nothing has been "normal" since having stents placed. Shortly after hospital stay earlier this month, she noticed dry cough development which has not improved, intermittent lightheadedness/dizziness whenever she is both sitting at rest and when ambulating. Last week she was influenza A positive and completed a course of Tamiflu. At home she has been taking all her medications as scheduled. Pt uses prednisone taper for psoriasis flares but hasn't needed it recently. Her , José, is sitting at bedside with her. Admission Exam Per Admitting Provider General: awake, alert, no apparent distress, obese Head: Normocephalic, atraumatic ENT: PERRL, EOMI, no pharyngeal exudate, mucous membranes moist Chest: Clear to auscultation, on room air, no adventitious breath sounds Cardiac: Regular rate and rhythm, no murmur, no JVD, normal peripheral pulses, good capillary refill Abdominal: NABS x 4 quadrants, soft, nondistended, nontender to palpation, no rebound or guarding Extremities: + Clubbing of fingernails, otherwise normal inspection, no peripheral edema or erythema, calfs nontender to palpation Psych: Normal mood and affect Neuro: AAO x 3, strength intact bilaterally and rated 5/5, no motor deficits, speech is clear, no peripheral sensory deficits Principal Diagnosis rule out ACS Discharge Exam General: awake, alert, no apparent distress, obese Head: Normocephalic, atraumatic ENT: PERRL, EOMI, no pharyngeal exudate, mucous membranes moist Chest: Clear to auscultation, on room air, no adventitious breath sounds Cardiac: Regular rate and rhythm, no murmur, no JVD, normal peripheral pulses, good capillary refill Abdominal: NABS x 4 quadrants, soft, nondistended, nontender to palpation, no rebound or guarding Extremities: + Clubbing of fingernails, otherwise normal inspection, no peripheral edema or erythema, calfs nontender to palpation Psych: Normal mood and affect Neuro: AAO x 3, strength intact bilaterally and rated 5/5, no motor deficits, speech is clear, no peripheral sensory deficits Discharge Data Allergies Allergy/AdvReac Type Severity Reaction Status Date / Time oxycodone AdvReac Intermediate Severe Unverified 11/17/22 15:58 nausea acetaminophen AdvReac Nausea Verified 11/17/22 15:58 [From Darvocet-N] propoxyphene AdvReac Nausea Verified 11/17/22 15:58 [From Darvocet-N] Consultations 11/17/22 17:01 ED Decision to Admit Stat Ordered Studies 11/17/22 15:33 CT angio chest PE protocol Stat Hospital Course (1) Atypical chest pain: - troponin negative x3, ECG without ischemic changes - patient denies chest pain or shortness of breath at rest or with exertion - will discharge home with Cardiology follow up (2) CAD (coronary artery disease): - cardiac biomarkers negative, ECG negative - follow up outpatient with Cardiology (3) HLD (hyperlipidemia): - continue statin (4) Emphysema of lung: -New finding on CT of the chest, patient quit smoking earlier this month after [id number] history, continued cessation encouraged -Neg for PE -Questionable pneumonitis versus infectious process, more likely pneumonitis as she does not have other infectious symptoms, afebrile, no leukocytosis, and recently completed course of Tamiflu for influenza A -Received solumedrol 40 mg IV in the ER. No further steroids at this time -Will require formal PFT testing as outpatient Plan DVT PPx: - teds, scds continue dual antiplatelet therapy CODE: Full code Dispo: home Total Time Total Time Spent Total Time Spent (In Minutes): 25 Total Time Includes: Examination of the Patient, Discharge Planning and Medication Reconciliation Discharge Plan Discharge Items Patient Disposition: Home - Self-Care Reason For Visit: CHEST PAIN, SOB Discharge Diagnosis: chest pain Activity: Resume your previous activity Non-emergency contact: Primary Care Provider and Chief Environmental Commitment Officer Call non-emergency contact if: you have any medication questions and your s ymptoms worsen Follow-up/Referrals: Josias Monzon MD [Physician] - Dorene Viera MD [Primary Care Provider] - Diet: Heart Healthy Addtl Attending Provider Instructions: You were admitted for chest pain and shortness of breath. Given your recent heart issues and stent placements, you were checked for the condition of your heart. You had negative blood work for heart damage and your EKGs were normal. You felt better and had not more chest pain or shortness of breath at rest or with activity. Given this, you were ok for discharge but should follow up with your Chief Environmental Commitment Officer within a week of discharge. Pending Studies at Discharge: No Stand-Alone Forms: My [facility] [employer] [employer], Smoking Cessation Medications and DC Order Prescriptions: Continued acetaminophen [Tylenol] 325 mg Tablet 650 mg PO QID PRN (Reason: Pain) hydrocortisone [Proctozone-HC] 2.5 % cream with perineal applicator 1 applic RI BID PRN (Reason: Hemorrhoids) methotrexate sodium 2.5 mg tablet 15 mg PO .QFRI folic acid 1 mg tablet 1 mg PO QAM montelukast 10 mg Tablet 10 mg PO DAILY PRN (Reason: Allergy Symptoms) betamethasone dipropionate 0.05 % ointment 1 applic TOPICAL BID PRN (Reason: .flare up) Rx Instructions: APPLY TO LEFT ARM. atorvastatin 40 mg Tablet 40 mg PO QAM 30 Days Qty: 30 2RF clopidogrel 75 mg Tablet 75 mg PO QAM 30 Days Qty: 30 2RF aspirin 81 mg Tablet,Delayed Release (Dr/Ec) 81 mg PO QAM 30 Days Qty: 30 2RF metoprolol tartrate 25 mg Tablet 12.5 mg PO BID 30 Days Qty: 30 2RF lisinopril 2.5 mg tablet 2.5 mg PO DAILY 30 Days Qty: 30 0RF nitroglycerin [Nitrostat] 0.3 mg tablet, sublingual 0.3 mg sublingual UD PRN (Reason: chest pain) Qty: 10 0RF Rx Instructions: place 1 tab under the tongue as needed for chest pain, if pain unrelieved or worsens 3-5 minutes after, call 911 Discharge Orders: Discharge Order (Routine); Ordered 11/18/22 Ordered By: Hung Feliciano Admission Data Admit Date/Time: 11/17/22 17:33 Attending Provider: Hung Feliciano Admit Provider: Francheska Alfonso Primary Care Provider: Dorene Viera Other Providers: Francheska Alfonso Other Interventions: Discharge Summary Assessment (RN) Last Done: 11/18/22 10:54
[2022-11-18] MEDS ORDERED: cefTRIAXone SODIUM 2,000 MG in DEXTROSE 5% 50 ML IV SCH (19:00)
--- NOTE | 2022-11-19 23:24 | Electrocardiogram Report ---
Test Reason : Blood Pressure : / mmHG Vent. Rate : 059 BPM Atrial Rate : 059 BPM P-R Int : 160 ms QRS Dur : 070 ms QT Int : 374 ms P-R-T Axes : -26 041 023 degrees QTc Int : 370 ms Poor data quality, interpretation may be adversely affected Sinus bradycardia Low voltage QRS Septal infarct , age undetermined Nonspecific T wave abnormality Abnormal ECG When compared with ECG of 03-NOV-2022 05:20, Minimal criteria for Septal infarct is now Present Confirmed by Oscar Samuels ([id number]) on 11/19/2022 11:23:34 PM Referred By: Dorene Viera Confirmed By:Oscar Samuels
--- NOTE | 2022-11-19 23:46 | Electrocardiogram Report ---
Test Reason : Blood Pressure : / mmHG Vent. Rate : 065 BPM Atrial Rate : 065 BPM P-R Int : 178 ms QRS Dur : 084 ms QT Int : 428 ms P-R-T Axes : 023 039 022 degrees QTc Int : 445 ms Normal sinus rhythm T wave abnormality, consider anterior ischemia Abnormal ECG When compared with ECG of 17-NOV-2022 15:24, Inverted T waves have replaced nonspecific T wave abnormality in Anterior leads QT has lengthened Confirmed by Oscar Samuels ([id number]) on 11/19/2022 11:46:03 PM Referred By: Dorene Viera Confirmed By:Oscar Samuels
== END 2022-11-18 11:27 | disposition home or self-care (01) ==
LOC: ED 15:17 → EDINP 15:17 → SUATTDRO 17:33 → 2E 19:00